=== PATIENT | female | born 1965 | race Caucasian/White ===

== ENCOUNTER 2020-07-07 09:09 | Outpatient (REF) | payer MEDICARE, MEDICAID, SELFPAY ==
[2020-07-07 10:47] LABS: Alanine Aminotransferase 14 U/L (0-31); Albumin Level 4.1 g/dL (3.5-5.0); Alkaline Phosphatase 67 U/L (39-117); Anion Gap 15 (12-20); Aspartate Amino Transferase 16 U/L (5-31); Bilirubin Direct 0.2 mg/dL (0.0-0.5); Bilirubin Total 0.4 mg/dL (0.0-1.0); Blood Urea Nitrogen 15 mg/dL (9-16); Calcium 9.7 mg/dL (8.4-10.2); Carbon Dioxide 30 mmol/L (22-29); Chloride 101 mmol/L (96-108); Estimated Glomerular Filt Rate 41; Glucose Random 206 mg/dL (60-115); Potassium 3.8 mmol/l (3.3-5.1); Sodium 142 mmol/L (135-145); Total Protein 6.5 g/dL (6.5-8.0)
[2020-07-07 10:59] LABS: Glucose Urine UA NEG (NEG); Leukocyte Esterase Urine TRACE (NEG); Nitrite Urine NEG (NEG); PH 5.5 (5.0-8.0); Specific Gravity - Urine >= 1.030 (1.005-1.025); Urine Blood TRACE (NEG); Urine Ketones 5 MG/DL (NEG); Urine Protein 2+ MG/DL (NEG-TRACE)
[2020-07-07 11:02] LABS: Appearance Urine CLOUDY; Color Urine YELLOW
[2020-07-07 11:34] LABS: WBC Urine 50-75 /HPF (0-4)
[2020-07-07 11:35] LABS: Bacteria Urine 4+ /LPF; Squamous Epithelial Cell Urine 2+ /LPF
[2020-07-08 07:53] LABS: HBc Num1 0.05 S/CO (0.00-0.79); Hepatitis B Core Antibody Nonreactive (Nonreactive); Hepatitis B Surface Antigen Negative (Negative)
[2020-07-08 08:08] LABS: HBS Num1 0.65 mIU/mL (0-7.99); ~HepC Num1 13.24 S/CO (0.00-0.79); ~Hepatitis B Surface Antibody NONREACTIVE (Nonreactive); ~Hepatitis C Antibody Reactive (Nonreactive)
== END 2020-07-07 09:10 | disposition home or self-care (01) ==
LOC: HO.LAB 09:09
PROVIDERS: PCP Physician Assistant; Visit Provider Physician Assistant
DX: R10.11 Right upper quadrant pain (principal); Z11.3 Encounter for screening for infections with a predominantly sexual mode of transmission; E11.9 Type 2 diabetes mellitus without complications; R30.0 Dysuria; Z87.19 Personal history of other diseases of the digestive system
CPT/HCPCS: 80048; 80076; 81001; 81003; 86704; 86706; 86803; 87086; 87088; 87186; 87340

== ENCOUNTER → 2020-07-15 08:30 | Outpatient (BNVA) | payer MEDICARE, MEDICAID, SELFPAY | PROVIDERS: PCP Physician Assistant; Visit Provider Physician Assistant | DX: K58.0 Irritable bowel syndrome with diarrhea (principal); R11.0 Nausea | CPT/HCPCS: Q3014 ==

== ENCOUNTER 2020-09-07 09:04 | Day surgery (SDC) | payer MEDICARE, MEDICAID, SELFPAY ==
[2020-09-01 12:24] VITALS: BMI 65.6
--- NOTE | 2020-09-01 14:42 | HO.ANESPROP2 ---
Documented by User: Meseret Canales 09/01/20 14:47 HPI - Anesthesia Eval Consult details Narrative: 55yo F for Upper Endoscopy and Colonoscopy Cardiac cleared [facility] Past Medical History Medical History Anxiety and depression CAD (coronary artery disease) CHF (congestive heart failure) Elevated cholesterol GERD (gastroesophageal reflux disease) History of weakness HTN (hypertension) Nausea Family History Family History Father Multiple sclerosis Mother Hypertension Diabetes Maternal Aunt Colon cancer Cervical cancer Surgical History Surgical History History of arthroscopy of left shoulder History of bunionectomy History of carpal tunnel release History of endometrial ablation History of esophagogastroduodenoscopy (EGD) History of laparoscopic cholecystectomy History of lumbar discectomy History of lumbar fusion History of vascular surgery Hx of colonoscopy S/P CABG x 3 S/P foot surgery, right Ulnar nerve entrapment Social History Social History Alcohol intake: never Smoking Status: Current every day smoker Tobacco Type: Cigarette Cigarettes Per Day: 4 Use of substances other than those prescribed or required for medical reasons: Yes Substance Use Type: Marijuana Substance Use Frequency: Weekly Advance Directives: No Advance Directives Information Provided: No Advance Directives on File: No Narrative Narrative: Per cardiac clearance note, pt walks 60 mins daily without cardiac symptoms Meds Allergies Allergy/AdvReac Type Severity Reaction Status Date / Time ibuprofen [Ibuprofen] Allergy Severe ACUTE Verified 09/01/20 12:09 RENAL FAILURE (YRS AGO), shut kidneys down, kidneys shut down Home Medications Medication Instructions Recorded Confirmed Type cholestyramine (with sugar) 4 gram 1 ea PO QID PRN 07/07/20 09/01/20 History powder for susp in a packet insulin glargine 100 unit/mL (3 18 unit SUBCUT BEDTIME ml 07/07/20 09/01/20 History mL) subcutaneous pen liraglutide 0.6 mg/0.1 mL (18 mg/3 0.6 mg SUBCUT DAILY 07/07/20 09/01/20 History mL) subcutaneous pen injector metoprolol tartrate 25 mg tablet 25 mg PO BID tab 07/07/20 09/01/20 History pantoprazole 40 mg tablet,delayed 40 mg PO DAILY 07/07/20 09/01/20 History release pen needle, diabetic 31 gauge x #50 ea 07/07/20 07/07/20 History 3/16 potassium chloride 10 mEq 10 meq PO DAILY 07/07/20 09/01/20 History tablet,extended release insulin aspart U-100 [Novolog 3 - 13 unit SUBCUT TIDAC 09/01/20 09/01/20 History Flexpen U-100 Insulin] ondansetron HCl 8 mg PO TID PRN 09/01/20 09/01/20 History Exam Exam Date and Time: September 01, 2020 1442 Height,Weight and Vital Signs: Height 5 ft 3 in Weight 168 kg Pertinent Lab Results Pertinent Lab Results: Laboratory Tests 04/23/20 07/07/20 13:55 09:35 WBC 9.8 Hgb 15.0 Hct 45.8 Plt Count 193 Sodium 142 Potassium 3.8 Chloride 101 Carbon Dioxide 30 H BUN 15 Creatinine 1.35 Narrative Narrative: Echo 2016 LV size is normal, Mild conc LVH, LV sys function nml, LVEF 55-60%, No def R WMA Abn septal motion c/w prior cardiac surgery. Aortic valve probably bicuspid with raphe. No signif . Trace AR. Trace MR RV size and function appear grossly nml. Mod TR PA sys pressure 25-30mmHg Assessment and Plan Assessment Anesthesia Assessment: Chart Reviewed Documented by User: Tray Paige 09/07/20 09:21 [facility] Past Medical History Medical History Anxiety and depression CAD (coronary artery disease) CHF (congestive heart failure) Elevated cholesterol GERD (gastroesophageal reflux disease) History of weakness HTN (hypertension) Nausea Family History Family History Father Multiple sclerosis Mother Hypertension Diabetes Maternal Aunt Colon cancer Cervical cancer Surgical History Surgical History History of arthroscopy of left shoulder History of bunionectomy History of carpal tunnel release History of endometrial ablation History of esophagogastroduodenoscopy (EGD) History of laparoscopic cholecystectomy History of lumbar discectomy History of lumbar fusion History of vascular surgery Hx of colonoscopy S/P CABG x 3 S/P foot surgery, right Ulnar nerve entrapment Social History Social History Alcohol intake: never Smoking Status: Current every day smoker Tobacco Type: Cigarette Cigarettes Per Day: 4 Use of substances other than those prescribed or required for medical reasons: Yes Substance Use Type: Marijuana Substance Use Frequency: Weekly Advance Directives: No Advance Directives Information Provided: No Advance Directives on File: No Meds Allergies Allergy/AdvReac Type Severity Reaction Status Date / Time ibuprofen [Ibuprofen] Allergy Severe ACUTE Verified 09/01/20 12:09 RENAL FAILURE (YRS AGO), shut kidneys down, kidneys shut down Home Medications Medication Instructions Recorded Confirmed Type cholestyramine (with sugar) 4 gram 1 ea PO QID PRN 07/07/20 09/01/20 History powder for susp in a packet insulin glargine 100 unit/mL (3 18 unit SUBCUT BEDTIME ml 07/07/20 09/01/20 History mL) subcutaneous pen liraglutide 0.6 mg/0.1 mL (18 mg/3 0.6 mg SUBCUT DAILY 07/07/20 09/01/20 History mL) subcutaneous pen injector metoprolol tartrate 25 mg tablet 25 mg PO BID tab 07/07/20 09/01/20 History pantoprazole 40 mg tablet,delayed 40 mg PO DAILY 07/07/20 09/01/20 History release pen needle, diabetic 31 gauge x #50 ea 07/07/20 07/07/20 History 3/16 potassium chloride 10 mEq 10 meq PO DAILY 07/07/20 09/01/20 History tablet,extended release insulin aspart U-100 [Novolog 3 - 13 unit SUBCUT TIDAC 09/01/20 09/01/20 History Flexpen U-100 Insulin] ondansetron HCl 8 mg PO TID PRN 09/01/20 09/01/20 History Exam Airway Mallampati Class: II TM Dist: >3cm Neck ROM: Full Denture: Upper and Lower
[2020-09-07 09:30] LABS: Glucose, Whole Blood 154 mg/dL (60-115)
--- NOTE | 2020-09-07 09:33 | MHC.SHP ---
Pre-Procedural Eval Section B Chief Complaint: nausea,irritable bowel syndrome with diarrhea Details of Present Illness: sx improved with course of cipro but not fully resolved, also better with stopping high dose Vit D Relevant Social History: Tobacco Use (THC as well) Present Medications: see Short Stay Collaborative assessment Medical History: Significant History (Anxiety and depression CAD (coronary artery disease) CHF (congestive heart failure) Elevated cholesterol GERD (gastroesophageal reflux disease) History of weakness HTN (hypertension) Nausea) History of Previous Operations: Relevant previous surgery/procedure and date(s) (History of arthroscopy of left shoulder History of bunionectomy History of carpal tunnel release History of endometrial ablation History of esophagogastroduodenoscopy (EGD) History of laparoscopic cholecystectomy History of lumbar discectomy History of lumbar fusion History of vascular surgery Hx of) Allergies: Allergies Allergy/AdvReac Type Severity Reaction Status Date / Time ibuprofen [Ibuprofen] Allergy Severe ACUTE Verified 09/01/20 12:09 RENAL FAILURE (YRS AGO), shut kidneys down, kidneys shut down Review of Systems Sugical H&P ROS: Negative: Constitution, Cardiovascular, Respiratory, Neurological, Psychiatric, Hem-Onc, Allergic/Immunologic, Gastrointestinal, Genitourinary, Musculoskeletal, Integumentary, Endocrine and Eyes/Ears/Nose/Throat Exam Surgical H&P Exam: Normal: HEENT, Normal: Heart, Normal: Lungs, Normal: Extremities, Normal: Abdomen, Normal: Skin and Normal: Neurological Plan Diagnosis/Plan: Unchanged I have reviewed the history and physical and performed a pertinent physical examination on my patient. No changes have occurred unless specified.
--- NOTE | 2020-09-07 09:35 | P.OP_ITS ---
Operative Note Operative Note Date of Service: 09/07/20 Narrative: Operative Information Procedure Description: EGD, Colonoscopy FLEXIBLE TRANSORAL UPPER GASTROINTESTINAL ENDOSCOPY AND COLONOSCOPY PROCEDURE NOTE UPPER ENDOSCOPY Consent: Indications for the procedure and potential complications of bleeding, perforation, reaction to medications and missed diagnosis were discussed with the patient and informed consent was obtained. Instrument: Olympus GIF H 190 J mid size upper endoscope Monitoring: Vital signs and clinical assessment, continuous EKG monitoring, Pulse oximetry, Carbon Dioxide monitoring and blood pressure monitoring were done throughout the procedure. Procedure: The patient was placed in the left lateral decubitis position and pre-procedure medications were administered and a bite block was placed. The endoscope was inserted into the mouth and advanced under direct vision to the third part of duodenum. A careful inspection was made as the upper endoscope was withdrawn including a retroflexed examination of the proximal stomach; Findings and interventions are described below. Findings: Larynx:normal Esophagus: GE junction at 37 cm, diaphragm hiatus at 37 cm, normal mucosa Stomach: Patchy erythema. Biopsies were obtained. Grade 2 flap valve on retroflexed examination of the cardia. Duodenum: bulbar duodenitis, bx taken Intervention: Biopsies as noted above COLONOSCOPY Instrument: Olympus variable stiffness pediatric scope 190L Colonoscopy Monitoring: Vital signs and clinical assessment, continuous EKG monitoring, Pulse oximetry, Carbon Dioxide monitoring and blood pressure monitoring were done throughout the procedure. Colon withdrawal time was 22 minutes. Procedure: The patient was placed in the left lateral decubitis position and pre-procedure medications were administered. After a digital rectal examination of the ano-rectum, the video colonoscope was inserted into the rectum and advanced through the colon to the cecum/TI. The colonoscope was slowly withdrawn in a retrograde panoramic fashion and the colon mucosa was carefully examined including a retroflexed view of the rectum. Findings and interventions are described below. Procedure Difficulty:easy Findings: random colon bx taken Terminal Ileum-normal, bx taken Cecum:3-4 mm sessile polyp removed with forceps, otherwise normal Ascending Colon: 12 mm sessile polyp removed with cold snare, residual tissue removed with forceps Transverse Colon -6-7 mm sessile polyp removed with forceps Descending Colon: 5-7 mm sessile polyp removed with forceps Sigmoid Colon: normal Rectum: Retroflexion with small internal hemorrhoids, grade I Anorectum - normal Colon preparation: [place] Bowel Preparation Scale Right colon; 1 Transverse colon: 2 Left colon; 3 (0 = Unprepared colon segment with mucosa not seen due to solid stool that cannot be cleared. 1 = Portion of mucosa of the colon segment seen, but other areas of the colon segment not well seen due to staining, residual stool and/or opaque liquid. 2 = Minor amount of residual staining, small fragments of stool and/or opaque liquid, but mucosa of colon segment seen well. 3 = Entire mucosa of colon segment seen well with no residual staining, small fragments of stool or opaque liquid) Impression and Post Procedure Diagnosis: Endoscopy Findings: gastritis duodenitis Colonoscopy Findings: internal hemorrhoids polyps Plan: Await Pathology results Repeat Colonoscopy in 2-3 years due to prep or earlier if clinically indicated High fiber diet leaflet avoid straining at stool, epsom salts and sitz bath, anusol supps or cream prn consider GES in ongoing sx Above findings were reviewed with the patient and relevant handouts were provided if indicated.
--- NOTE | 2020-09-07 09:35 | PM.OP ---
Brief Operative Note Date of Service: 09/07/20 Pre-op diagnosis: diarrhea Post-op diagnosis: same Procedure: see op note Surgeon: Erica Hatfield MD Anesthesia: MAC Estimated blood loss (mL): 0 Condition: stable Disposition: PACU
[2020-09-07 09:37] VITALS: BMI 29.7
[2020-09-07 09:43] VITALS: BP 148/77; PULSE 92; RESP 18; TEMP 36.3; O2SAT 98
[2020-09-07] MEDS: Lactated Ringers 1,000 ML 100 ML IVCONT (09:46)
[2020-09-07 10:45] VITALS: BP 139/75; PULSE 75; RESP 14; TEMP 37.2; O2SAT 97
[2020-09-07 11:00] VITALS: BP 124/76; PULSE 77; RESP 17; TEMP 36.7; O2SAT 97
--- NOTE | 2020-09-07 11:23 | HO.POSTANES ---
Post Anesthesia Evaluation Post Anesthesia Evaluation Vital Signs: Vital Signs Temp Pulse Resp BP Pulse Ox 09/07/20 11:00 98.0 F 77 17 124/76 97 09/07/20 10:45 98.9 F 75 14 139/75 97 09/07/20 09:43 97.3 F 92 18 148/77 H 98 Anesthesia: Monitored Mental Status: Awake Pain Control: Satisfactory Nausea/Vomiting: None Hydration: Adequate Anesthesia-Related Issues: No Anes. Related Issues
== END 2020-09-07 11:30 | disposition home or self-care (01) ==
PROVIDERS: PCP Physician Assistant; Visit Provider Internal Medicine Gastroenterology
PROC: (CPT 45385; principal; 2020-09-07 10:20)
DX: K58.0 Irritable bowel syndrome with diarrhea (principal); D12.3 Benign neoplasm of transverse colon; D12.4 Benign neoplasm of descending colon; K63.5 Polyp of colon; K64.0 First degree hemorrhoids; K29.70 Gastritis, unspecified, without bleeding; K29.80 Duodenitis without bleeding; K44.9 Diaphragmatic hernia without obstruction or gangrene; Z90.49 Acquired absence of other specified parts of digestive tract; I11.0 Hypertensive heart disease with heart failure; I50.9 Heart failure, unspecified; I25.10 Atherosclerotic heart disease of native coronary artery without angina pectoris; F17.210 Nicotine dependence, cigarettes, uncomplicated; Z95.1 Presence of aortocoronary bypass graft; Z79.899 Other long term (current) drug therapy; Z88.8 Allergy status to other drugs, medicaments and biological substances
CPT/HCPCS: 45385; 45380; 43239; 82947; 88305; 88342; J2370

== ENCOUNTER → 2020-09-14 09:38 | Outpatient (BNVA) | payer MEDICARE, MEDICAID, SELFPAY | PROVIDERS: PCP Physician Assistant; Visit Provider Physician Assistant | DX: Z13.89 Encounter for screening for other disorder (principal) | CPT/HCPCS: Q3014 ==

== ENCOUNTER → 2020-10-06 11:20 | Outpatient (BNVA) | payer MEDICARE, MEDICAID, SELFPAY | PROVIDERS: PCP Physician Assistant; Visit Provider Internal Medicine Gastroenterology | CPT/HCPCS: Q3014 ==

== ENCOUNTER 2020-11-09 11:17 | Outpatient (REF) | payer MEDICARE, MEDICAID, SELFPAY ==
--- NOTE | ~2020-11-09 | MM_ITS ---
EXAMINATION: MM SCREENING DIGITAL BREAST TOMOSYNTHESIS, BILATERAL CLINICAL INFORMATION: Screening. Asymptomatic. The lifetime risk of breast cancer based on the Tyrer-Cuzick Model is 4.2%. COMPARISON: Mammography: September 26, 2019 and studies dating back to June 24, 2013 TECHNIQUE: Digital breast tomosynthesis is performed in both the craniocaudal and mediolateral oblique views along with computer-aided detection (CAD). Synthesized 2D images are generated from the tomosynthesis. FINDINGS: The breasts are almost entirely fatty (ACR BI-RADS breast composition Category a). There are no significant masses, abnormal calcifications, or other abnormalities. MM/MM tomosynthesis screening BI IMPRESSION: There are no significant changes from prior study. ASSESSMENT: BI-RADS 1: Negative RECOMMENDATION: Routine annual mammography screening. This patient's information was entered into a reminder system with a target due date for their next mammogram.
== END 2020-11-09 11:18 | disposition home or self-care (01) ==
LOC: HO.MAMMO 11:17
PROVIDERS: PCP Physician Assistant; Visit Provider Physician Assistant
DX: Z12.31 Encounter for screening mammogram for malignant neoplasm of breast (principal)
CPT/HCPCS: 77063; 77067

== ENCOUNTER → 2020-11-16 07:53 | Outpatient (REF) | payer MEDICARE, MEDICAID, SELFPAY ==
--- NOTE | ~2020-11-16 | NM_ITS ---
EXAMINATION: RADIONUCLIDE SOLID FOOD GASTRIC EMPTYING 4-HOUR STUDY CLINICAL INFORMATION: Nausea COMPARISON: The previous study dated 10/16/2018 is available for comparison. TECHNIQUE: A standard meal consisting of 4 oz of Egg Beaters brand equivalent tagged with 830 microcuries Tc-99m Sulfur Colloid, 8 oz water and 2 slices of toast with jelly was administered orally to the patient. Images were obtained using a dual head gamma camera in the anterior and posterior projections over of the stomach immediately post ingestion and at hourly intervals up to 4 hours post ingestion. The anterior and posterior counts at each time interval were averaged using the geometric mean and expressed as percentage of the immediate post ingestion counts. FINDINGS: There is good visualization of activity in the stomach immediately post ingestion. As the study progresses, there is good clearance of activity from the stomach and visualization of progressively increasing small bowel activity. By the end of the study, there is almost no retention noted in the stomach. Retention in the stomach at each time interval was: 1 hour 65% (normal 37%-90%) 2 hours 51% (normal 30%-60%) 3 hours 24% 4 hours 8% (normal 0%-10%) Compared to the prior study dated 10/16/2018, gastric emptying of solid food is slightly more rapid on the current study. Previously there was 16% retention at 4 hours, a mildly abnormal result. NM/NM gastric emptying study IMPRESSION: Normal 4-hour solid food gastric emptying study.
== END ==
LOC: HO.NUCMED 07:53
PROVIDERS: Visit Provider Physician Assistant
DX: R11.0 Nausea (principal)
CPT/HCPCS: 78264; A9541

== ENCOUNTER → 2020-12-29 09:53 | Outpatient (BNVA) | payer MEDICARE, MEDICAID, SELFPAY | PROVIDERS: PCP Physician Assistant; Visit Provider Internal Medicine Gastroenterology | CPT/HCPCS: 99212 ==

== ENCOUNTER 2021-02-11 16:43 | Outpatient (REF) | payer MEDICARE, MEDICAID, SELFPAY ==
[2021-02-11 18:24] LABS: Hemoglobin 16.7 g/dl (12.0-16.0); Mean Corpuscular HGB Conc 34.1 g/dl (31.0-35.0); Mean Corpuscular Hemoglobin 31.1 pg (27.0-33.0); Mean Corpuscular Volume 91.2 fL (80-98); Mean Platelet Volume 11.4 fL (9.4-12.3); Platelet Count 182 X10*3/uL (160-400); Red Blood Count 5.37 X10*6/uL (4.20-5.50); Red Cell Distribution Width 13.3 % (11.0-16.0)
[2021-02-11 18:33] LABS: Alanine Aminotransferase 13 U/L (0-31); Albumin Level 4.4 g/dL (3.5-5.0); Alkaline Phosphatase 69 U/L (39-117); Anion Gap 14 (12-20); Aspartate Amino Transferase 15 U/L (5-31); Bilirubin Total 0.7 mg/dL (0.0-1.0); Blood Urea Nitrogen 21 mg/dL (9-16); Carbon Dioxide 24 mmol/L (22-29); Chloride 109 mmol/L (96-108); Cholesterol 185 mg/dL; Estimated Glomerular Filt Rate 55; Glucose Fasting 116 mg/dL (60-99); HDL Cholesterol 45 mg/dL; LDL Cholesterol Calculated 105 mg/dl; Potassium 4.1 mmol/L (3.3-5.1); Sodium 143 mmol/L (135-145); Triglycerides 178 mg/dL
[2021-02-11 18:55] LABS: TSH reflex Free T4 0.74 uIU/mL (0.32-4.0)
== END 2021-02-11 16:44 | disposition home or self-care (01) ==
LOC: HO.LAB 16:43
PROVIDERS: PCP Physician Assistant; Visit Provider Physician Assistant
DX: I10 Essential (primary) hypertension (principal); E11.65 Type 2 diabetes mellitus with hyperglycemia
CPT/HCPCS: 36415; 80053; 80061; 84443; 85027

== ENCOUNTER 2021-04-14 11:45 | Outpatient (REF) | payer MEDICARE, MEDICAID, SELFPAY ==
--- NOTE | ~2021-04-14 | XR_ITS ---
EXAMINATION: XR CHEST CLINICAL INFORMATION: Atherosclerotic heart disease of the [place] coronary arteries COMPARISON: Previous chest x-ray most recent February 2018 TECHNIQUE: 2 views of the chest were obtained. FINDINGS: The cardiac and mediastinal contours are stable. There are post-CABG changes. The lungs are clear. There is no pleural effusion or pneumothorax. There are degenerative changes of the spine. There may be postoperative or posttraumatic changes to the right distal clavicle. XR/XR chest 2V IMPRESSION: No evidence for acute disease in the chest.
== END 2021-04-14 11:46 | disposition home or self-care (01) ==
LOC: HO.XRAY 11:45
PROVIDERS: PCP Physician Assistant; Visit Provider Physician Assistant
DX: I25.10 Atherosclerotic heart disease of native coronary artery without angina pectoris (principal)
CPT/HCPCS: 71046

== ENCOUNTER → 2021-05-10 11:18 | Outpatient (BNVA) | payer MEDICARE, MEDICAID, SELFPAY | PROVIDERS: PCP Physician Assistant; Referring Provider Physician Assistant; Visit Provider Internal Medicine Gastroenterology | DX: K58.9 Irritable bowel syndrome, unspecified (principal); R11.0 Nausea | CPT/HCPCS: 99212 ==

== ENCOUNTER → 2021-09-07 11:21 | Outpatient (BNVA) | payer MEDICARE, MEDICAID, SELFPAY | PROVIDERS: PCP Physician Assistant; Referring Provider Physician Assistant; Visit Provider Internal Medicine Gastroenterology | DX: K58.0 Irritable bowel syndrome with diarrhea (principal) | CPT/HCPCS: 99212 ==

== ENCOUNTER 2021-10-18 08:14 | Outpatient (REF) | payer MEDICARE, MEDICAID, SELFPAY ==
[2021-10-18 09:19] LABS: Hematocrit 46.5 % (37.0-47.0); Hemoglobin 15.3 g/dl (12.0-16.0); Mean Corpuscular HGB Conc 32.9 g/dl (31.0-35.0); Mean Corpuscular Hemoglobin 30.3 pg (27.0-33.0); Mean Corpuscular Volume 92.1 fL (80.0-98.0); Mean Platelet Volume 10.6 fL (9.4-12.3); Platelet Count 185 X10*3/uL (160-400); Red Blood Count 5.05 X10*6/uL (4.20-5.50); Red Cell Distribution Width 14.1 % (11.0-16.0); White Blood Count 8.9 X10*3/uL (4.8-10.8)
[2021-10-18 09:41] LABS: Alanine Aminotransferase 15 U/L (0-31); Albumin Level 3.7 g/dL (3.5-5.0); Alkaline Phosphatase 80 U/L (39-117); Anion Gap 12 (12-20); Aspartate Amino Transferase 16 U/L (5-31); Bilirubin Total 0.4 mg/dL (0.0-1.0); Blood Urea Nitrogen 17 mg/dL (9-16); Calcium 9.2 mg/dL (8.4-10.2); Carbon Dioxide 25 mmol/L (22-29); Chloride 107 mmol/L (96-108); Cholesterol 215 mg/dL; Estimated Glomerular Filt Rate > 60; Glucose Fasting 179 mg/dL (60-99); HDL Cholesterol 70 mg/dL; LDL Cholesterol Calculated 125 mg/dl; Potassium 4.4 mmol/L (3.3-5.1); Sodium 140 mmol/L (135-145); Total Protein 6.1 g/dL (6.5-8.0); Triglycerides 102 mg/dL
[2021-10-18 10:05] LABS: Vitamin D 25-OH Total 12.1 ng/mL (>30)
[2021-10-18 11:05] LABS: Folate 5.1 ng/mL (> or = 4.0); Vitamin B12 266 pg/mL (200-900)
== END 2021-10-18 08:15 | disposition home or self-care (01) ==
LOC: HO.LAB 08:14
PROVIDERS: PCP Physician Assistant; Visit Provider Physician Assistant
DX: I25.10 Atherosclerotic heart disease of native coronary artery without angina pectoris (principal); I10 Essential (primary) hypertension; E11.65 Type 2 diabetes mellitus with hyperglycemia
CPT/HCPCS: 36415; 80053; 80061; 82306; 82607; 82746; 85027

== ENCOUNTER → 2022-05-06 09:00 | Outpatient (BNVA) | payer MEDICARE, MEDICAID, SELFPAY | PROVIDERS: PCP Physician Assistant; Referring Provider Physician Assistant; Visit Provider Internal Medicine Gastroenterology | DX: K58.0 Irritable bowel syndrome with diarrhea (principal); R10.11 Right upper quadrant pain | CPT/HCPCS: 99212 ==

== ENCOUNTER 2022-05-09 07:01 | Outpatient (REF) | payer MEDICARE, MEDICAID, SELFPAY ==
--- NOTE | ~2022-05-09 | XR_ITS ---
EXAMINATION: XR KUB CLINICAL INDICATION: Reason for Exam K58.0 - Irritable bowel syndrome with diarrhea COMPARISON: CT abdomen pelvis 08/28/2018 TECHNIQUE: AP view of the abdomen. XR/XR KUB FINDINGS/IMPRESSION: * Nonobstructive bowel gas pattern with a moderate colonic stool burden. * Stable calcifications in the pelvis which on prior exam appear to correspond to calcified phleboliths and a calcified left gluteal granuloma. * Incidentally noted hardware at L5-S1 posterior spinal fusion with L5 laminectomy and cholecystectomy clips.
[2022-05-09 08:01] LABS: Alanine Aminotransferase 20 U/L (0-31); Albumin Level 4.2 g/dL (3.5-5.0); Alkaline Phosphatase 93 U/L (39-117); Anion Gap 16 (12-20); Aspartate Amino Transferase 15 U/L (5-31); Bilirubin Total 0.4 mg/dL (0.0-1.0); Blood Urea Nitrogen 23 mg/dL (9-16); Calcium 9.4 mg/dL (8.4-10.2); Carbon Dioxide 24 mmol/L (22-29); Chloride 104 mmol/L (96-108); Cholesterol 156 mg/dL; Estimated Glomerular Filt Rate 56; Glucose Fasting 286 mg/dL (60-99); HDL Cholesterol 49 mg/dL; LDL Cholesterol Calculated 78 mg/dl; Potassium 4.7 mmol/L (3.3-5.1); Sodium 139 mmol/L (135-145); Total Protein 6.6 g/dL (6.5-8.0); Triglycerides 146 mg/dL
[2022-05-09 08:09] LABS: Creatinine Urine 120.95 mg/dL
[2022-05-09 08:21] LABS: Microalbum/Creatinine Ratio Ur 1532.8 ug/mg cr; TSH reflex Free T4 3.03 uIU/mL (0.32-4.0)
== END 2022-05-09 07:02 | disposition home or self-care (01) ==
LOC: HO.LAB 07:01
PROVIDERS: Absent Provider Physician Assistant; PCP Physician Assistant; Visit Provider Internal Medicine Gastroenterology
DX: R10.11 Right upper quadrant pain (principal); K58.0 Irritable bowel syndrome with diarrhea; I25.10 Atherosclerotic heart disease of native coronary artery without angina pectoris; E11.65 Type 2 diabetes mellitus with hyperglycemia
CPT/HCPCS: 36415; 74018; 80053; 80061; 82043; 84443

== ENCOUNTER → 2023-01-17 14:49 | Outpatient (BNVA) | payer MEDICARE, MEDICAID, SELFPAY | PROVIDERS: PCP Physician Assistant; Visit Provider Nurse Practitioner Family | DX: G47.00 Insomnia, unspecified (principal); G47.19 Other hypersomnia; G47.26 Circadian rhythm sleep disorder, shift work type; R06.83 Snoring; E66.9 Obesity, unspecified; Z68.32 Body mass index [BMI] 32.0-32.9, adult | CPT/HCPCS: 99202 ==

== ENCOUNTER → 2023-01-27 19:38 | Outpatient (REF) | payer MEDICARE, MEDICAID, SELFPAY | LOC: HO.SL 19:38 | PROVIDERS: PCP Physician Assistant; Visit Provider Nurse Practitioner Family | DX: G47.00 Insomnia, unspecified (principal); G47.19 Other hypersomnia; R06.83 Snoring; E66.9 Obesity, unspecified | CPT/HCPCS: 95810 ==

== ENCOUNTER 2023-02-15 11:30 | Outpatient (RCR) | payer MEDICARE, MEDICAID, SELFPAY | END 2023-04-11 10:16 | disposition home or self-care (01) | LOC: HO.OT 11:30 | PROVIDERS: PCP Physician Assistant; Visit Provider Internal Medicine | DX: I69.351 Hemiplegia and hemiparesis following cerebral infarction affecting right dominant side (principal); I63.542 Cerebral infarction due to unspecified occlusion or stenosis of left cerebellar artery | CPT/HCPCS: 97110; 97112; 97140; 97165; 97530 ==

== ENCOUNTER 2023-03-02 08:26 | Outpatient (AMB) | payer MEDICARE, MEDICAID, SELFPAY ==
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
[2023-03-02 08:37] VITALS: BP 128/64; PULSE 88; O2SAT 95; BMI 32.6
== END 2023-03-02 09:37 | disposition home or self-care (01) ==
PROVIDERS: PCP Physician Assistant; Visit Provider Physician Assistant
DX: I11.0 Hypertensive heart disease with heart failure (principal); E11.65 Type 2 diabetes mellitus with hyperglycemia; I50.32 Chronic diastolic (congestive) heart failure; Z86.73 Personal history of transient ischemic attack (TIA), and cerebral infarction without residual deficits; I65.23 Occlusion and stenosis of bilateral carotid arteries; I25.10 Atherosclerotic heart disease of native coronary artery without angina pectoris
CPT/HCPCS: 83036; 99214

== ENCOUNTER 2023-04-19 08:35 | Outpatient (AMB) | payer MEDICARE, MEDICAID, SELFPAY ==
--- NOTE | 2023-04-19 08:43 | A.OFFVIS_ITS ---
Intake Vital Signs 04/19/23 08:47 Height 5 ft 3 in Weight 191 lb 4 oz BMI 33.9 BP 124/64 Blood Pressure Location Rt brachial Position Sitting Pulse 85 Pulse Source Pulse Oximeter Pulse Oximetry (%) 95 Oxygen Delivery Method Room Air Intake Visit Reasons: AWV Intake Note: Patient is here for an Annual Wellness Visit. 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: No Director Of Restaurants: Director Of Restaurants offered & declined Accompanied by: Self / Same As Patient Allergies ibuprofen [Ibuprofen] Allergy (Severe, Verified 04/19/23 09:15) ACUTE RENAL FAILURE (YRS AGO), shut kidneys down, kidneys shut down Medication List - Last Reconciled 04/19/23 by Christopher Stephenson PA-C aspirin (Adult Low Dose Aspirin) 81 mg PO DAILY atorvastatin 40 mg PO DAILY 90 days flash glucose sensor (FreeStyle [place] 2 Sensor kit) As directed insulin aspart U-100 (Novolog FlexPen U-100 Insulin aspart) 3 - 13 units (0.03 - 0.13 mL) subcut TIDAC 30 days insulin glargine (Lantus Solostar U-100 Insulin) 20 units (0.2 mL) subcut BEDTIME 30 days liraglutide 1.8 mg (0.3 mL) subcut DAILY 30 days loperamide 2 mg PO TID PRN 30 days metoprolol tartrate 25 mg PO BID ondansetron HCl 8 mg PO TID 15 days pantoprazole 40 mg PO DAILY pen needle, diabetic As directed quetiapine (Seroquel) 25 mg PO BEDTIME 30 days tramadol 50 mg PO Q8H PRN 14 days HPI AWV HPI Details Patient is a 57-year-old female here today for annual wellness visit. Today we discussed patient's surgical care and end of life planning. Given a MOLST form Vaccines: Up-to-date with COVID vaccine, pneumonia vaccine and tetanus vaccine considering shingles vaccine Colon cancer screening: utd Mammogram: Needs up-to-date mammogram HPI Comments History of Present Illness Details reviewed past medical history- yes reviewed surgical / hospitalization history- yes reviewed current medications- yes reviewed family history- yes home safety throw rugs? grab bars? raised toilet seat? working smoke detectors? activities of daily living difficulty bathing or showering? difficulty dressing? difficulty using the toilet? difficulty getting in and out of bed? difficulty walking? receives help from other person's with any of the above tasks? instrumental activities of daily living uses telephone - gets to place out of walking distance- go shopping for groceries- repairs own meals- does own minor home maintenance- does own laundry- does own housework- manages own money- currently takes medication- end of life planning discussed advanced directives- yes advanced directives on file? discussed wishes expressed in advanced directives. fall risk have you had any falls with injuries in the past year? have you had 2 or more falls in the past year? fall risk assessment: [facility] Medical History Anxiety and depression CAD (coronary artery disease) CHF (congestive heart failure) Chronic nausea Elevated cholesterol GERD (gastroesophageal reflux disease) History of weakness HTN (hypertension) Irritable bowel syndrome with diarrhea Nausea Surgical History History of arthroscopy of left shoulder History of bunionectomy History of carpal tunnel release History of endometrial ablation History of esophagogastroduodenoscopy (EGD) History of laparoscopic cholecystectomy History of lumbar discectomy History of lumbar fusion History of vascular surgery Hx of colonoscopy S/P CABG x 3 S/P foot surgery, right Ulnar nerve entrapment Family History Father Multiple sclerosis Mother Hypertension Diabetes Maternal Aunt Colon cancer Cervical cancer Other Mental problem Social History Household Members: Family Housing: House Alcohol intake: current Alcohol intake frequency: holidays/special occasions only Patient Tobacco Use Status: Former Tobacco user Quit Date: 10/30/22 Tobacco use type: Cigarette Cigarettes Per Day: 4 e-Cigarette/Vaping Use: Never Used Substance Use Type: Marijuana service: No Current occupational status: disabled Cognitive needs: No Hearing needs: No Vision needs: No Questionnaire Medicare Wellness Checkup What [age] your [age]?: 65-69 (57) What gender do you identify with?: female During the past 4 weeks, how much have you been bothered by emotional problems such as feeling anxious, depressed, irritable, sad or downhearted, and blue?: moderately During the past 4 weeks, has your physical & emotional health limited your social activities with family, friends, neighbors, or groups?: not at all During the past 4 weeks, how much bodily pain have you generally had?: moderate pain During the past 4 weeks, was someone available to help you if you needed & wanted help?: yes, a little During the past 4 weeks, what was the hardest physical activity you could do for at least 2 minutes?: moderate Can you get to places out of walking distance without help? (For eg., can you travel alone on buses, taxis or drive your car?): Yes Can you go shopping for groceries or clothes without someone's help?: Yes Can you prepare your own meals?: Yes Can you do your housework without help?: No Because of any health problems, do you need the help of another person with your personal care needs such as eating, bathing, dressing or getting around the house?: No Can you handle your own money without help?: Yes During the past 4 weeks, how would you rate your health in general?: poor During the past 4 weeks how have things been going for you?: good & bad parts about equal Are you having difficulties driving your car?: no Do you always fasten your seat belt when you are in a car?: yes, usually During past 4 weeks, have you been bothered by the following: never: Sexual problems? and Problems using the telephone?, seldom: Falling or dizzy when standing up and Teeth or denture problems? and often: Trouble eating well? and Tiredness or fatigue? Have you fallen 2 or more times in the past year?: Yes Are you afraid of falling?: No Are you a smoker?: no During the past 4 weeks, how many drinks of wine, beer, or other alcoholic beverages did you have?: no alcohol at all Do you exercise for about 20 minutes 3 or more times a week?: yes, most of the time Have you been given information to help with the following?: no: Hazards in your house that might hurt you? and no: Keeping track of your medications? How often do you have trouble taking medicines the way you have been told to take them?: I always take medicine as prescribed How confident are you that you can control & manage most of your health problems?: very confident Mini Mental State Exam (MMSE) Orientation What is the (year) (season) (date) (day) (month)?: season Where are we (state) (county) (town or city) (hospital) (floor)?: town or city Attention & Calculation (CHOOSE ONE) Spell WORLD backwards (DLROW): 5 letters Score Score: 7 Activity of Daily Living Bathing - sponge bath, tub bath or shower: receives no assistance (gets in/out by self, if usual bathing means Dressing - getting clothes from closets & drawers, including inner/outer garments & fasteners.: gets clothes & gets completely dressed without help Toileting - going to the 'toilet room' for urine/bowel elimination & cleaning self/arranging clothes: goes to toilet room, cleans self, arranges clothes without help Transfer: moves in & out of bed and chair without help (may use support object) Continence: controls urination/bowel movements completely by self Feeding: feeds self without help Total Score: 0 Information obtained from: patient Using telephone: independent Traveling: independent Shopping: independent Preparing meals: independent Housework: independent Taking medicine: independent Managing money: independent PHQ-9 Over the last 2 weeks, how often have you been bothered by any of the following problems? 1. Little interest or pleasure in doing things: more than half the days 2. Feeling down, depressed, or hopeless: more than half the days 3. Trouble falling or staying asleep, or sleeping too much: nearly every day 4. Feeling tired or having little energy: nearly every day 5. Poor appetite or overeating: more than half the days 6. Feeling bad about yourself - or that you are a failure or have let yourself or your family down: not at all 7. Trouble concentrating on things, such as reading the newspaper or watching television: not at all 8. Moving or speaking so slowly that other people could have noticed. Or the opposite - being so fidgety or restless that you have been moving around a lot more than usual: not at all 9. Thoughts that you would be better off or of hurting yourself in some way: not at all Total score: 12 Depression Screening Interpretation: Positive [id number] - PHQ-9 Billing: Yes Source: Developed by Drs. Pily Verduzco, Alex Garcia and colleagues, with an educational neymar from [employer]. Thrive Questionnaire Date Thrive assessed: 04/19/23 I am a: Patient What is your living situation today?: I have a steady place to live Within the past 12 months, did the food you bought not last and you didn't have the money to get more?: Never true Within the past 12 months, did you worry whether your food would run out before you got money to buy more?: Never true Do you have trouble paying for medicines?: No Do you have trouble getting transportation to medical appointments?: No Do you have trouble paying your heating and electricity bill?: No Do you have trouble taking care of your child, family member or friend?: No Do you have trouble with day-to-day activities such as bathing, preparing meals, shopping, managing finances, etc.?: No Are you currently unemployed and looking for a job?: No Are you interested in more education?: No Currently or been in a relationship where the following occur: no concerns reported CAROLYN-7 AMB Questionnaire CAROLYN-7 Date CAROLYN - 7 assessed: 11/29/22 Source: Developed by Drs. Gagandeep Feliz, Pily Lawson, Alex Garcia and colleagues, with an educational neymar from [employer]. Physical Exam Vital Signs: Last Vital Signs Pulse 85 04/19/23 08:47 BP 124/64 04/19/23 08:47 Pulse Ox 95 04/19/23 08:47 Oxygen Delivery Method Room Air 04/19/23 08:47 BMI result Body Mass Index 33.9 HEENT Other: hearing screening whisper test- pass Eyes Other: vision screening-using corrective lenses 20/20- OS OD OU Other: urinary incontinence? Neuro Other: balance Romberg- normal tandem walk test- able walk-in turned test- able rise from sit to stand- within 2 sec Assessment & Plan Assessment & Plan (1) Medicare annual wellness visit, initial: Code(s): Z00.00 - Encounter for general adult medical examination without abnormal findings (2) Cervical cancer screening: Code(s): Z12.4 - Encounter for screening for malignant neoplasm of cervix Plan: Needs cervical cancer screening. (3) Breast cancer screening: Code(s): Z12.39 - Encounter for other screening for malignant neoplasm of breast Qualifiers: Breast cancer screening modality: mammogram Qualified Code(s): Z12.31 - Encounter for screening mammogram for malignant neoplasm of breast Plan: Needs up-to-date Orders: Orders Lipid Panel 04/19/23 I25.10 - Atherosclerotic heart disease of [place] coronary artery without angina pectoris Complete Blood Count no Diff 04/19/23 I25.10 - Atherosclerotic heart disease of [place] coronary artery without angina pectoris NT-proBNP 04/19/23 I50.32 - Chronic diastolic (congestive) heart failure Comprehensive [place]. Panel Fast 04/19/23 I25.10 - Atherosclerotic heart disease of [place] coronary artery without angina pectoris Microalbumin, Random (w Creat) 04/19/23 I10 - Essential (primary) hypertension MM screening mammo BI Today Z12.31 - Encounter for screening mammogram for malignant neoplasm of breast Quality Reporting (2019) Depression/Bipolar (159/160/161/177) PHQ-9: Total score: 12 Coding Level of Care Code Medicare First (G0438) Diagnoses Medicare annual wellness visit, initial Z00.00 Cervical cancer screening Z12.4 Encounter for screening mammogram for malignant neoplasm of breast Z12.31 Breast cancer screening modality: mammogram CPT Codes Advance Care Planning - Time spent: 1-15 minutes, on File ([id number]) Advance Care Planning Advance Care Planning discussion: Completed/Scanned Date of discussion: 04/19/23 Forms completed: MOLST Time spent: 1-15 minutes, on File
[2023-04-19 08:47] VITALS: BP 124/64; PULSE 85; O2SAT 95; BMI 33.9
== END 2023-04-19 09:43 | disposition home or self-care (01) ==
PROVIDERS: PCP Physician Assistant; Visit Provider Physician Assistant
DX: Z00.00 Encounter for general adult medical examination without abnormal findings (principal); Z12.31 Encounter for screening mammogram for malignant neoplasm of breast
CPT/HCPCS: 1123F; G0438; G0439

== ENCOUNTER 2023-05-19 11:21 | Outpatient (REF) | payer MEDICARE, MEDICAID, SELFPAY ==
--- NOTE | ~2023-05-19 | MM_ITS ---
EXAMINATION: MM SCREENING DIGITAL BREAST TOMOSYNTHESIS, BILATERAL CLINICAL INFORMATION: Screening. Asymptomatic. COMPARISON: Mammography: This study is compared with prior exams dating back to 2016. TECHNIQUE: Digital breast tomosynthesis is performed in both the craniocaudal and mediolateral oblique views along with computer-aided detection (CAD). Synthesized 2D images are generated from the tomosynthesis. FINDINGS: The breasts are almost entirely fatty (ACR BI-RADS breast composition Category a). There are no significant masses, abnormal calcifications, or other abnormalities. MM/MM tomosynthesis screening BI IMPRESSION: No mammographic evidence of malignancy. ASSESSMENT: BI-RADS BI-RADS 1 - Negative RECOMMENDATION: Routine annual mammography screening. 1 year F/U This examination should not preclude the clinical evaluation of a suspicious palpable abnormality. This patient's information was entered into a reminder system with a target due date for their next mammogram.
== END 2023-05-19 11:22 | disposition home or self-care (01) ==
LOC: HO.MAMMO 11:21
PROVIDERS: PCP Physician Assistant; Visit Provider Physician Assistant
DX: Z12.31 Encounter for screening mammogram for malignant neoplasm of breast (principal)
CPT/HCPCS: 77063; 77067

== ENCOUNTER → 2023-05-19 11:30 | Outpatient (BNV) | payer MEDICARE, MEDICAID, SELFPAY | PROVIDERS: PCP Physician Assistant; Visit Provider Radiology Diagnostic Radiology | DX: Z12.31 Encounter for screening mammogram for malignant neoplasm of breast (principal) | CPT/HCPCS: 77063; 77067 ==

== ENCOUNTER 2023-11-27 09:05 | Outpatient (AMB) | payer MEDICARE, MEDICAID, SELFPAY ==
--- NOTE | 2023-11-27 09:14 | A.OFFPC_ITS ---
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 Required: No Accompanied by: Self / Same As Patient Allergies ibuprofen [Ibuprofen] Allergy (Severe, Verified 11/27/23 09:40) ACUTE RENAL FAILURE (YRS AGO), shut kidneys down, kidneys shut down Medication List - Last Reconciled 11/27/23 by Christopher Stephenson PA-C aspirin (Adult Low Dose Aspirin) 81 mg PO DAILY atorvastatin 40 mg PO DAILY 90 days ezetimibe 10 mg PO DAILY flash glucose sensor (Downstream [place] 2 Sensor kit) As directed insulin aspart U-100 (Novolog FlexPen U-100 Insulin aspart) 3 - 13 units (0.03 - 0.13 mL) subcut TIDAC 30 days insulin glargine (Lantus Solostar U-100 Insulin) 20 units (0.2 mL) subcut BEDTIME 30 days liraglutide 1.8 mg (0.3 mL) subcut DAILY 30 days loperamide 2 mg PO TID PRN 30 days metoprolol tartrate 25 mg PO BID ondansetron HCl 8 mg PO TID 15 days pantoprazole 40 mg PO DAILY pen needle, diabetic As directed quetiapine (Seroquel) 25 mg PO BEDTIME 30 days tramadol 50 mg PO Q8H PRN 14 days Tobacco use date assessed: 11/27/23 Dental Screening Dental Screen Date: 11/27/23 Did you have a dental visit in the last 12 months?: No Did you have a dental problem in the last 6 months where you did not have access to dental care?: No Was dental information given to patient?: Patient has dentist HPI 3 months F/U R/S from 11/19 HPI Details Patient is a 58-year-old female here today for follow-up visit. 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 .. CVA(October of 2022)- has followed up with Neurology, has been referred to vascular as she does have intracranial arterial stenosis. Has done occupational therapy . She has been left with right-sided upper extremity neuromuscular weakness. Also does have bilateral carotid stenosis and has been followed by vascular for this. She reports she has generally quit smoking though does have a cigarette here and there due to stress. ? .. ? DMII : . Was followed by [facility] though is not satisfied with the service.. She reports her blood sugars have been elevated as of late and has been having difficult time controlling them. Today's A1c at 10 from 7.5. Has microalbuminuria and has seen Nephrology, Bun/creatinine has been stable. Unfortunately was not able to get fasting labs done before today's appointment. She also does neuropathy in her lower extremities.? PLAN: Will tight in her short-acting preprandial insulin, increase her Lantus to 28 units. Will transition her to Trulicity once a week for added benefit of weight loss. ? .. ? Depression:? She reports her depression and anxiety have been elevated as of late as she has been having issues with her mother whom lives with her and her home.? She does report they argue a lot and sometimes the arguments become physical. ? . ? Insomnia: Patient reports she is having issues with sleep, she reports she has been taking Seroquel 25 mg at night with only decent affect. She does take 50 mg at night with good effect. She is interested in increasing her dose of Seroquel to 50 mg ? .. ? CAD ( CABG) & CHF - recently saw her cardiologis no new recommendations has follow-up in 1 year. ?Deneis any CP , lower extemity edema [facility] Medical History Nausea GERD (gastroesophageal reflux disease) Anxiety and depression History of weakness Elevated cholesterol HTN (hypertension) CAD (coronary artery disease) CHF (congestive heart failure) Irritable bowel syndrome with diarrhea Chronic nausea Surgical History History of esophagogastroduodenoscopy (EGD) Hx of colonoscopy History of vascular surgery S/P foot surgery, right S/P CABG x 3 Ulnar nerve entrapment History of lumbar fusion History of arthroscopy of left shoulder History of bunionectomy History of endometrial ablation History of carpal tunnel release History of laparoscopic cholecystectomy History of lumbar discectomy Family History Father Multiple sclerosis Mother Hypertension Diabetes Maternal Aunt Colon cancer Cervical cancer Other Mental problem Social History Household Members: Family Housing: House Alcohol intake: current Alcohol intake frequency: holidays/special occasions only Patient Tobacco Use Status: Former Tobacco user Quit Date: 10/30/22 Tobacco use type: Cigarette Cigarettes Per Day: 4 e-Cigarette/Vaping Use: Never Used Substance Use Type: Marijuana service: No Current occupational status: disabled Cognitive needs: No Hearing needs: No Vision needs: No Questionnaire PHQ-9 Over the last 2 weeks, how often have you been bothered by any of the following problems? 1. Little interest or pleasure in doing things: not at all 2. Feeling down, depressed, or hopeless: not at all 3. Trouble falling or staying asleep, or sleeping too much: not at all 4. Feeling tired or having little energy: not at all 5. Poor appetite or overeating: not at all 6. Feeling bad about yourself - or that you are a failure or have let yourself or your family down: not at all 7. Trouble concentrating on things, such as reading the newspaper or watching television: not at all 8. Moving or speaking so slowly that other people could have noticed. Or the opposite - being so fidgety or restless that you have been moving around a lot more than usual: not at all 9. Thoughts that you would be better off or of hurting yourself in some way: not at all Total score: 0 Depression Screening Interpretation: Negative Depression Screening Done: Yes 43856 - PHQ-9 Billing: Yes Source: Developed by Drs. Gagandeep Feliz, Pily Lawson, Alex Garcia and colleagues, with an educational neymar from [employer]. Thrive Questionnaire Date Thrive assessed: 11/27/23 I am a: Patient What is your living situation today?: I have a steady place to live Within the past 12 months, did the food you bought not last and you didn't have the money to get more?: Never true Within the past 12 months, did you worry whether your food would run out before you got money to buy more?: Never true Do you have trouble paying for medicines?: No Do you have trouble getting transportation to medical appointments?: No Do you have trouble paying your heating and electricity bill?: No Do you have trouble taking care of your child, family member or friend?: No Do you have trouble with day-to-day activities such as bathing, preparing meals, shopping, managing finances, etc.?: No Are you currently unemployed and looking for a job?: No Are you interested in more education?: No Please select the resources that you would like help with: None Currently or been in a relationship where the following occur: no concerns reported THRIVE Score: 0 AUDIT C Alcohol Use Questionnaire (AUDIT-C) 1. How often do you have a drink containing alcohol?: Never 3. How often do you have six or more drinks on one occasion?: Never Total Score: 0 CAROLYN-7 AMB Questionnaire CAROLYN-7 Date CAROLYN - 7 assessed: 11/27/23 Feeling nervous, anxious, or on edge: 0 = Not at all Not being able to stop or control worryin = Not at all Worrying too much about different things: 0 = Not at all Trouble relaxin = Not at all Being so restless that it is hard to sit still: 0 = Not at all Becoming easily annoyed or irritable: 0 = Not at all Feeling afraid as if something awful might happen: 0 = Not at all Total CAROLYN-7 score (0-4 normal; 5-9 mild; 10-14 moderate; 15-21 severe): 0 Source: Developed by Drs. Gagandeep Feliz, Pily Lawson, Alex Garcia and colleagues, with an educational neymar from [employer]. CAROLYN-7 Assessment Billing CAROLYN-7 Assessment Tool: CAROLYN-7 Assessment 47380 Review of Systems Const Denies headache(s) Eyes Denies loss of vision ENT Denies vertigo, Denies dizziness, Denies headache(s) and Denies sore throat Card Denies chest pain, Denies leg edema and Denies lightheadedness Resp Denies cough, Denies hemoptysis and Denies wheezing GI Denies abdominal pain, Denies melena, Denies constipation, Denies diarrhea and Denies vomiting Denies urinary frequency, Denies dysuria and Denies urinary urgency Musc Denies arthralgias, Denies joint swelling, Denies numbness and Denies tingling Neuro Denies Abnormal speech present, Denies behavioral changes, Denies vertigo, Denies dizziness, Denies headache(s), Denies loss of vision, Denies memory loss, Denies numbness and Denies tingling Psych Denies anxiety, Denies behavioral changes, Denies depression, Denies memory loss and Denies panic attacks Panda/Lymph Denies easy bleeding and Denies easy bruising Aller/Immun Denies wheezing Physical exam (Primary Care) Vital Signs: Last Vital Signs Pulse 88 11/27/23 09:15 BP 130/72 11/27/23 09:15 Pulse Ox 95 11/27/23 09:15 BMI result Body Mass Index 32.4 Tobacco/Smoking Status: Tobacco use Status Tobacco use date assessed 11/27/23 11/27/23 09:22 Patient Tobacco Use Status Former Tobacco user 11/27/23 09:22 Tobacco use type Cigarette 11/27/23 09:22 e-Cigarette/Vaping Use Never Used 11/27/23 09:22 PHQ-9: PHQ-9 Score PHQ-9: Total score 0 11/27/23 09:45 Depression Screening Interpretation: Negative Thrive Assessment: Date of Thrive Assessment Date Thrive assessed 11/27/23 11/27/23 09:22 Currently or been in a relationship where the following occur: no concerns reported Const General: healthy appearing, no acute distress, alert and awake Nutritional Appearance: well nourished Orientation/consciousness: oriented to person, oriented to place and oriented to time HENMT Ears: TM's normal bilaterally General nose exam: Normal nasal mucous membranes and turbinates present Eyes Conjunctivae: conjunctivae normal Sclerae: sclerae normal Pupils: Equal, round and reactive pupils present Neck Neck: Yes no lymphadenopathy and Yes no JVD Thyroid: Thyroid normal Carotids: no bruits Resp Effort & Inspection: normal respiratory effort and not tachypneic Auscultation: no crackles, no rales, no rhonchi and no wheezes Cardio Rate: regular rate Rhythm: regular rhythm Heart sounds: no murmurs and normal S1 and S2 GI Palpation (GI): Soft to palpation, nontender, no hepatomegaly and no splenomegaly Auscultation: normal bowel sounds Skin General skin exam: no rashes or lesions noted and dry skin Neuro General: oriented to person, oriented to place and oriented to time Cranial nerves: Yes Equal, round and reactive pupils present Speech: No Abnormal speech present Gait exam (Neuro): Normal gait present Motor exam (neuro): no tremor noted Extrem Right upper extremity: full ROM Left upper extremity: full ROM Right lower extremity: full ROM; no edema Left lower extremity: full ROM; no edema Psych Mental Status: mental status grossly normal Speech and movement: Normal speech and movement present Affect: normal affect Attitude: cooperative Thought process: Normal thought process present Results AMB Hemoglobin A1c AMB Hemoglobin A1c 10.0 % Last Edit by AMRIK Wild on 11/27/23 09:43 Results Reviewed Results Reviewed: Laboratory Last Values Hgb A1c (Clinic) 10.0 % (4.0-6.0) H 11/27/23 09:33 Assessment and Plan Assessment & Plan (1) DMII (diabetes mellitus, type 2): Code(s): E11.9 - Type 2 diabetes mellitus without complications Qualifiers: Diabetes mellitus complication status: with hyperglycemia Diabetes mellitus usp insulin use: without intermission coordinator use Qualified Code(s): E11.65 - Type 2 diabetes mellitus with hyperglycemia Plan: Patient's type 2 diabetes not well controlled as of late, she does report having hyperglycemia on a daily basis. Today's A1c at 10 from 7.5. She was followed by endocrinology at [facility] though is not pleased with their service. Will increase her Lantus to 28 units, will tighten her preprandial short-acting insulin. Will transition her from Victoza to Trulicity once a week.. Will refer to endocrinology for recommendations in stabilization of her diabetes., Goal A1c is to be below 7.0 (2) Cerebral infarction, left hemisphere: Comment: [facility] [place] - left hemispheric infarct in watershed areas of left frontal, temporal and parietal territories. Code(s): I63.9 - Cerebral infarction, unspecified Plan: As per HPI patient experienced CVA in October of 2022. She reports she continues to have some right hand cramping and numbness. Has done full course of occupational therapy for her right hand. Continue on aspirin 81 mg daily. (3) Hyperlipidemia: Code(s): E78.5 - Hyperlipidemia, unspecified Qualifiers: Hyperlipidemia type: mixed hyperlipidemia Qualified Code(s): E78.2 - Mixed hyperlipidemia Plan: Patient continues on statin therapy. Goal LDL to remain below 70. (4) Carotid artery stenosis: Comment: 10/2022 ([facility]) CTA of the head and neck with a right stenosis at VR, right ICA stenosis of 70% and left ICA stenosis of 50%. Code(s): I65.29 - Occlusion and stenosis of unspecified carotid artery Qualifiers: Laterality: bilateral Qualified Code(s): I65.23 - Occlusion and stenosis of bilateral carotid arteries Plan: Followed by vascular [facility] most recent vascular testing stable. (5) CAD (coronary artery disease): Code(s): I25.10 - Atherosclerotic heart disease of [place] coronary artery without angina pectoris Qualifiers: Associated angina: without angina Coronary Disease-Associated Artery/Lesion type: [place] artery [place] vs. transplanted heart: [place] heart Qualified Code(s): I25.10 - Atherosclerotic heart disease of [place] coronary artery without angina pectoris Plan: Will continue to follow lipid panel to ensure LDL below 70. (6) CHF (congestive heart failure): Code(s): I50.9 - Heart failure, unspecified Qualifiers: Heart failure chronicity: chronic Heart failure type: diastolic Qualified Code(s): I50.32 - Chronic diastolic (congestive) heart failure Plan: Patient clinically euvolemic on physical exam today. Continues to follow cardiology. No recent Congestive heart failure exacerbations reported. (7) HTN (hypertension): Code(s): I10 - Essential (primary) hypertension Qualifiers: Hypertension type: primary hypertension Qualified Code(s): I10 - Essential (primary) hypertension Plan: Patient's blood pressure acceptable today in office. Will continue current dose of antihypertensive medication with goal blood pressure be below 140/90 (8) Bilateral hand pain: Code(s): M79.641 - Pain in right hand; M79.642 - Pain in left hand Plan: Will send for x-rays of bilateral hand see evaluate for any evidence of erosion consistent with inflammatory arthritis. Orders: Orders AMB Hemoglobin A1c Today E11.65 - Type 2 diabetes mellitus with hyperglycemia Lipid Panel Today E78.2 - Mixed hyperlipidemia Comprehensive [place]. Panel Fast Today I50.32 - Chronic diastolic (congestive) heart failure NINFA Reflex Titer and Pattern Today M54.5 - Low back pain XR hand LT 2V Today M79.641 - Pain in right hand, M79.642 - Pain in left hand XR hand RT 2V Today M79.641 - Pain in right hand, M79.642 - Pain in left hand Microalbumin, Random (w Creat) Today I10 - Essential (primary) hypertension Complete Blood Count no Diff Today E11.65 - Type 2 diabetes mellitus with hyperglycemia Rheumatoid Factor Today M54.5 - Low back pain Cyclic Citrullinated Peptide Today M54.5 - Low back pain Referrals Endocrinology Referral E11.65 - Type 2 diabetes mellitus with hyperglycemia Medications: New dulaglutide (Trulicity) 0.75 mg (0.5 mL) subcut QWEEK 2 mL 1RF 4 weeks E11.65 - Type 2 diabetes mellitus with hyperglycemia quetiapine (Seroquel) 50 mg PO BEDTIME 30 tabs 3RF 30 days G47.00 - Insomnia, unspecified Changed From insulin glargine (Lantus Solostar U-100 Insulin) 20 units (0.2 mL) subcut BEDTIME 30 days 15 mL 6RF E11.9 - Type 2 diabetes mellitus without complications To insulin glargine (Lantus Solostar U-100 Insulin) 28 units (0.28 mL) subcut BEDTIME 8.4 mL 6RF 30 days E11.9 - Type 2 diabetes mellitus without complications From insulin aspart U-100 (Novolog FlexPen U-100 Insulin aspart) 3 - 13 units (0.03 - 0.13 mL) subcut TIDAC 30 days 15 mL 3RF E11.9 - Type 2 diabetes mellitus without complications To insulin aspart U-100 (Novolog FlexPen U-100 Insulin aspart) Sliding scale 8 - 24 units (0.08 - 0.24 mL) subcut TIDAC 15 mL 3RF 30 days E11.9 - Type 2 diabetes mellitus without complications Refilled atorvastatin 40 mg PO DAILY 90 tabs 1RF 90 days I25.10 - Atherosclerotic heart disease of [place] coronary artery without angina pectoris loperamide 2 mg PO TID PRN 90 caps 2RF loose stool 30 days K58.0 - Irritable bowel syndrome with diarrhea ondansetron HCl 8 mg PO TID 45 tabs 2RF Nausea 15 days R11.0 - Nausea insulin aspart U-100 (Novolog FlexPen U-100 Insulin aspart) 3 - 13 units (0.03 - 0.13 mL) subcut TIDAC 30 days 15 mL 3RF E11.9 - Type 2 diabetes mellitus without complications insulin glargine (Lantus Solostar U-100 Insulin) 20 units (0.2 mL) subcut BEDTIME 30 days 15 mL 6RF E11.9 - Type 2 diabetes mellitus without compl ications tramadol 50 mg PO Q8H PRN 42 tabs 3RF pain 14 days M54.5 - Low back pain, M79.601 - Pain in right arm Patient Instructions: Goals: Controlled diabetes, A1c below 7.0, control risk factors to reduce risk of another heart attack or stroke. Barriers: Mental health, scheduling appointments, care she was receiving at [facility] Coding Level of Care Code Est Pt Level 4 (84322) Diagnoses Type 2 diabetes mellitus with hyperglycemia, without long-term current use of insulin E11.65 Diabetes mellitus complication status: with hyperglycemia Diabetes mellitus usp insulin use: without intermission coordinator use Cerebral infarction, left hemisphere I63.9 Mixed hyperlipidemia E78.2 Hyperlipidemia type: mixed hyperlipidemia Bilateral carotid artery stenosis I65.23 Laterality: bilateral Coronary artery disease involving [place] coronary artery of [place] heart without angina pectoris I25.10 Associated angina: without angina Coronary Disease-Associated Artery/Lesion type: [place] artery [place] vs. transplanted heart: [place] heart Chronic diastolic congestive heart failure I50.32 Heart failure chronicity: chronic Heart failure type: diastolic Primary hypertension I10 Hypertension type: primary hypertension Bilateral hand pain M79.641; M79.642 Additional Codes CAROLYN-7 Assessment Billing - CAROLYN-7 Assessment Tool: CAROLYN-7 Assessment [id number] ([id number])
[2023-11-27 09:15] VITALS: BP 130/72; PULSE 88; O2SAT 95; BMI 32.4
== END 2023-11-27 10:06 | disposition home or self-care (01) ==
PROVIDERS: PCP Physician Assistant; Visit Provider Physician Assistant
DX: E11.65 Type 2 diabetes mellitus with hyperglycemia (principal); I69.351 Hemiplegia and hemiparesis following cerebral infarction affecting right dominant side; I50.32 Chronic diastolic (congestive) heart failure; I65.23 Occlusion and stenosis of bilateral carotid arteries; E78.2 Mixed hyperlipidemia; I25.10 Atherosclerotic heart disease of native coronary artery without angina pectoris; I10 Essential (primary) hypertension; M79.641 Pain in right hand; M79.642 Pain in left hand
CPT/HCPCS: 83036; 99214

== ENCOUNTER 2024-01-25 12:48 | Outpatient (REF) | payer MEDICARE, SELFPAY ==
[2024-01-25 14:04] LABS: Hematocrit 45.3 % (37.0-47.0); Mean Corpuscular HGB Conc 33.1 g/dl (31.0-35.0); Mean Corpuscular Hemoglobin 29.9 pg (27.0-33.0); Mean Corpuscular Volume 90.4 fL (80.0-98.0); Mean Platelet Volume 11.1 fL (9.4-12.3); Platelet Count 202 X10*3/uL (160-400); Red Blood Count 5.01 X10*6/uL (4.20-5.50); Red Cell Distribution Width 13.7 % (11.0-16.0); White Blood Count 8.7 X10*3/uL (4.8-10.8)
[2024-01-25 14:23] LABS: Rheumatoid Factor < 13.0 IU/mL (<15.0)
[2024-01-25 14:33] LABS: Alanine Aminotransferase 28 U/L (0-31); Albumin Level 3.8 g/dL (3.5-5.0); Alkaline Phosphatase 66 U/L (39-117); Anion Gap 9 (12-20); Aspartate Amino Transferase 25 U/L (5-31); Bilirubin Total 0.5 mg/dL (0.0-1.0); Blood Urea Nitrogen 26 mg/dL (9-16); Calcium 9.4 mg/dL (8.4-10.2); Carbon Dioxide 29 mmol/L (22-29); Chloride 107 mmol/L (96-108); Cholesterol 129 mg/dL (<200); Estimated Glomerular Filt Rate 54; Glucose Fasting 183 mg/dL (60-99); HDL Cholesterol 45 mg/dL (>40); LDL Cholesterol Calculated 54 mg/dL (<100); Potassium 4.4 mmol/L (3.3-5.1); Sodium 141 mmol/L (135-145); Total Protein 6.6 g/dL (6.5-8.0); Triglycerides 150 mg/dL (<150)
[2024-01-29 11:13] LABS: Cyclic Citrullinated Peptide <16 UNITS
[2024-01-29 14:44] LABS: Anti Nuclear Antibody Screen NEGATIVE (NEGATIVE)
== END 2024-01-25 12:49 | disposition home or self-care (01) ==
LOC: HO.LAB 12:48
PROVIDERS: PCP Physician Assistant; Visit Provider Physician Assistant
DX: I11.0 Hypertensive heart disease with heart failure (principal); I50.32 Chronic diastolic (congestive) heart failure; E11.65 Type 2 diabetes mellitus with hyperglycemia; E78.2 Mixed hyperlipidemia; M54.50 Low back pain, unspecified
CPT/HCPCS: 36415; 80053; 80061; 85027; 86038; 86200; 86431

== ENCOUNTER 2024-01-29 09:47 | Outpatient (AMB) | payer MEDICARE, MEDICAID, SELFPAY ==
[2024-01-29 10:01] VITALS: BP 102/60; PULSE 80; O2SAT 97; BMI 32.1
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
== END 2024-01-29 10:50 | disposition home or self-care (01) ==
PROVIDERS: PCP Physician Assistant; Visit Provider Physician Assistant
DX: E11.65 Type 2 diabetes mellitus with hyperglycemia (principal); I11.0 Hypertensive heart disease with heart failure; I50.32 Chronic diastolic (congestive) heart failure; I25.10 Atherosclerotic heart disease of native coronary artery without angina pectoris
CPT/HCPCS: 99214; G2211

== ENCOUNTER 2024-04-24 11:11 | Outpatient (AMB) | payer MEDICARE, MEDICAID, SELFPAY ==
--- NOTE | 2024-04-24 11:33 | AM.OFFVISMDC ---
Intake Vital Signs 04/24/24 11:34 Height 5 ft 3 in Weight 184 lb 6 oz BMI 32.7 Blood Pressure Location Lt brachial Position Sitting Pulse Source Pulse Oximeter Temp 82 F L Pulse Oximetry (%) 95 Oxygen Delivery Method Room Air Intake Visit Reasons: SWV G0439 Intake Note: Patient is here for an Annual Wellness Visit. 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 Accompanied by: Self / Same As Patient Allergies ibuprofen [Ibuprofen] Allergy (Severe, Verified 04/25/24 09:29) ACUTE RENAL FAILURE (YRS AGO), shut kidneys down, kidneys shut down quetiapine [From Seroquel] Adverse Reaction (Intermediate, Verified 04/25/24 09:29) Sleepiness Medication List - Last Reconciled 04/24/24 by Christopher Stephenson PA-C aspirin (Adult Low Dose Aspirin) 81 mg PO DAILY atorvastatin 40 mg PO DAILY 90 days dulaglutide (Trulicity) 0.75 mg (0.5 mL) subcut QWEEK 4 weeks ezetimibe 10 mg PO DAILY flash glucose sensor ([employer] [place] 2 Sensor kit) As directed insulin glargine (Lantus Solostar U-100 Insulin) 28 units (0.28 mL) subcut BEDTIME 30 days insulin lispro (Humalog KwikPen (U-100) Insulin) 24 units (0.24 mL) subcut TID 30 days loperamide 2 mg PO TID PRN 30 days metoprolol tartrate 25 mg PO BID ondansetron HCl 8 mg PO TID 15 days pantoprazole 40 mg PO DAILY 90 days pen needle, diabetic As directed tramadol 50 mg PO Q8H PRN 14 days trazodone 150 mg PO BEDTIME 90 days HPI SWV G0439 HPI Details Patient is a 58-year-old female here today for annual wellness visit. Today we discussed patient's [place] of care and end of life planning. Does have MOLST in chart-patient full code Today we reviewed her comprehensive care plan and was scanned to chart Vaccines: Up-to-date with COVID vaccine, pneumonia vaccine and tetanus vaccine , considering shingles vaccine Colon cancer screening: utd Mammogram: Done in 05/2023, BI-RADS 1 Colorectal cancer screening: Needs repeat colonoscopy Laboratory Tests 05/09/22 03/02/23 11/27/23 07:07 08:44 09:33 RBC Hgb Creatinine 1.02 Fasting Glucose 286 H Hgb A1c (Clinic) 7.5 H 10.0 H Cholesterol 156 D LDL Cholesterol, C alc 78 Rheumatoid Factor 01/25/24 04/24/24 13:10 11:51 RBC 5.01 Hgb 15.0 Creatinine 1.04 Fasting Glucose 183 H Hgb A1c (Clinic) 7.4 H Cholesterol 129 LDL Cholesterol, C alc 54 Rheumatoid Factor < 13.0 HPI Comments History of Present Illness Details reviewed past medical history- yes reviewed surgical / hospitalization history- yes reviewed current medications- yes reviewed family history- yes home safety throw rugs? grab bars? raised toilet seat? working smoke detectors? activities of daily living difficulty bathing or showering? difficulty dressing? difficulty using the toilet? difficulty getting in and out of bed? difficulty walking? receives help from other person's with any of the above tasks? instrumental activities of daily living uses telephone - gets to place out of walking distance- go shopping for groceries- repairs own meals- does own minor home maintenance- does own laundry- does own housework- manages own money- currently takes medication- end of life planning discussed advanced directives- yes advanced directives on file? discussed wishes expressed in advanced directives. fall risk have you had any falls with injuries in the past year? have you had 2 or more falls in the past year? fall risk assessment: [facility] Medical History Nausea GERD (gastroesophageal reflux disease) Anxiety and depression History of weakness Elevated cholesterol HTN (hypertension) CAD (coronary artery disease) CHF (congestive heart failure) Irritable bowel syndrome with diarrhea Chronic nausea Surgical History History of esophagogastroduodenoscopy (EGD) Hx of colonoscopy History of vascular surgery S/P foot surgery, right S/P CABG x 3 Ulnar nerve entrapment History of lumbar fusion History of arthroscopy of left shoulder History of bunionectomy History of endometrial ablation History of carpal tunnel release History of laparoscopic cholecystectomy History of lumbar discectomy Family History Father Multiple sclerosis Mother Hypertension Diabetes Maternal Aunt Colon cancer Cervical cancer Other Mental problem Social History Household Members: Family Housing: House Alcohol intake: current Alcohol intake frequency: holidays/special occasions only Patient Tobacco Use Status: Former Tobacco user Tobacco use type: Cigarette Cigarettes Per Day: 4 e-Cigarette/Vaping Use: Never Used Substance Use Type: Marijuana service: No Current occupational status: disabled Cognitive needs: No Hearing needs: No Vision needs: No Questionnaire Medicare Wellness Checkup [age] What gender do you identify with?: female During the past 4 weeks, how much have you been bothered by emotional problems such as feeling anxious, depressed, irritable, sad or downhearted, and blue?: not at all During the past 4 weeks, has your physical & emotional health limited your social activities with family, friends, neighbors, or groups?: moderately During the past 4 weeks, how much bodily pain have you generally had?: moderate pain During the past 4 weeks, was someone available to help you if you needed & wanted help?: yes, a little During the past 4 weeks, what was the hardest physical activity you could do for at least 2 minutes?: very light Can you get to places out of walking distance without help? (For eg., can you travel alone on buses, taxis or drive your car?): Yes Can you go shopping for groceries or clothes without someone's help?: Yes Can you prepare your own meals?: Yes Can you do your housework without help?: Yes Because of any health problems, do you need the help of another person with your personal care needs such as eating, bathing, dressing or getting around the house?: No Can you handle your own money without help?: Yes During the past 4 weeks, how would you rate your health in general?: fair During the past 4 weeks how have things been going for you?: good & bad parts about equal Are you having difficulties driving your car?: not applicable, I don't use a car Do you always fasten your seat belt when you are in a car?: no During past 4 weeks, have you been bothered by the following: never: Falling or dizzy when standing up, Sexual problems?, Trouble eating well? and Problems using the telephone? and sometimes: Teeth or denture problems? and Tiredness or fatigue? Have you fallen 2 or more times in the past year?: Yes Are you afraid of falling?: No Are you a smoker?: no During the past 4 weeks, how many drinks of wine, beer, or other alcoholic beverages did you have?: no alcohol at all Do you exercise for about 20 minutes 3 or more times a week?: no, I usually do not exercise this much Have you been given information to help with the following?: no: Hazards in your house that might hurt you? and no: Keeping track of your medications? How often do you have trouble taking medicines the way you have been told to take them?: I always take medicine as prescribed How confident are you that you can control & manage most of your health problems?: very confident What is your race?: White Mini Mental State Exam (MMSE) Orientation What is the (year) (season) (date) (day) (month)?: year Where are we (state) (county) (town or city) (hospital) (floor)?: town or city Attention & Calculation (CHOOSE ONE) Spell WORLD backwards (DLROW): 5 letters Score Score: 7 Activity of Daily Living Bathing - sponge bath, tub bath or shower: receives no assistance (gets in/out by self, if usual bathing means Dressing - getting clothes from closets & drawers, including inner/outer garments & fasteners.: gets clothes & gets completely dressed without help Toileting - going to the 'toilet room' for urine/bowel elimination & cleaning self/arranging clothes: goes to toilet room, cleans self, arranges clothes without help Transfer: moves in & out of bed and chair without help (may use support object) Continence: controls urination/bowel movements completely by self Feeding: feeds self without help Total Score: 0 Information obtained from: patient Using telephone: independent Traveling: independent Shopping: independent Preparing meals: independent Housework: needs assistance Taking medicine: independent Managing money: independent PHQ-9 Over the last 2 weeks, how often have you been bothered by any of the following problems? 1. Little interest or pleasure in doing things: not at all 2. Feeling down, depressed, or hopeless: not at all 3. Trouble falling or staying asleep, or sleeping too much: nearly every day 4. Feeling tired or having little energy: several days 5. Poor appetite or overeating: several days 6. Feeling bad about yourself - or that you are a failure or have let yourself or your family down: not at all 7. Trouble concentrating on things, such as reading the newspaper or watching television: not at all 8. Moving or speaking so slowly that other people could have noticed. Or the opposite - being so fidgety or restless that you have been moving around a lot more than usual: not at all 9. Thoughts that you would be better off or of hurting yourself in some way: not at all Total score: 5 Depression Screening Interpretation: Positive Depression Screening Follow-up: Existing condition and In treatment Depression Screening Done: Yes 49315 - PHQ-9 Billing: Yes Source: Developed by Drs. Gagandeep Feliz, Pily Lawson, Alex Garcia and colleagues, with an educational neymar from [employer]. Physical Exam Vital Signs: Last Vital Signs Temp 82 F L 04/24/24 11:34 Pulse Ox 95 04/24/24 11:34 Oxygen Delivery Method Room Air 04/24/24 11:34 BMI result Body Mass Index 32.7 HEENT Other: hearing screening whisper test- failed on right side Eyes Other: vision screening- 20 20 OS OD OU Other: urinary incontinence? no Neuro Other: balance Romberg- normal tandem walk test- able walk-in turned test- able rise from sit to stand- within 2 seconds Extrem Ankle/foot/toe images: 1. NO SKIN BREAKDOWN OR ULCERATIONS NOTED. DOES HAVE SOME DECREASED SENSATION TO LIGHT TOUCH OVER THE [place]AR REGION OF HER FEET. Results AMB Hemoglobin A1c AMB Hemoglobin A1c 7.4 % Last Edit by AMRIK Wild on 04/24/24 11:52 Results Reviewed Results Reviewed: Laboratory Last Values Hgb A1c (Clinic) 7.4 % (4.0-6.0) H 04/24/24 11:51 Assessment & Plan Assessment & Plan (1) Annual wellness visit: Code(s): Z00.00 - Encounter for general adult medical examination without abnormal findings Plan: As per HPI Orders: Orders AMB Hemoglobin A1c 04/24/24 E11.65 - Type 2 diabetes mellitus with hyperglycemia Lipid Panel 04/24/24 E78.2 - Mixed hyperlipidemia Referrals Gastroenterology Referral R93.3 - Abnormal findings on diagnostic imaging of other parts of digestive tract Quality Reporting (2019) Depression/Bipolar (159/160/161/177) PHQ-9: Total score: 5 Coding Level of Care Code Medicare Subsequent (G0439) Diagnoses Annual wellness visit Z00.00 CPT Codes Advance Care Planning - Advance Care Planning discussion: On file, no changes ([id number]) Advance Care Planning - Time spent: 1-15 minutes, on File ([id number]) Advance Care Planning Advance Care Planning discussion: On file, no changes Date of discussion: 04/24/24 Forms completed: MOLST Time spent: 1-15 minutes, on File Actual minutes spent: 4
[2024-04-24 11:34] VITALS: TEMP 27.7; O2SAT 95; BMI 32.7
== END 2024-04-24 12:11 | disposition home or self-care (01) ==
PROVIDERS: PCP Physician Assistant; Visit Provider Physician Assistant
DX: E11.65 Type 2 diabetes mellitus with hyperglycemia (principal)
CPT/HCPCS: 1123F; 83036; G0439

== ENCOUNTER 2024-07-05 10:18 | Outpatient (AMB) | payer MEDICARE, MEDICAID, SELFPAY ==
[2024-07-05 10:27] VITALS: BP 152/69; PULSE 73; BMI 33.2
--- NOTE | 2024-07-05 10:27 | A.OFFVIS_ITS ---
Vital Signs 07/05/24 10:27 Height 5 ft 3 in Weight 187 lb 6.287 oz BMI 33.2 BP 152/69 H Blood Pressure Location Lt brachial Position Sitting Pulse 73 Intake Visit Reasons: abnormal findings on imaging Intake Note: Jane presents in the office as a follow up. CC: She states that she is just having all the same issues with diarrhea. Superintendent Menagerie Required: No Allergies ibuprofen [Ibuprofen] Allergy (Severe, Verified 07/05/24 10:27) ACUTE RENAL FAILURE (YRS AGO), shut kidneys down, kidneys shut down quetiapine [From Seroquel] Adverse Reaction (Intermediate, Verified 07/05/24 10:27) Sleepiness HPI HPI abnormal findings on imaging: Details: A 59-year-old female diabetic, being seen for f/u RECAP: She had nausea and abn bowle habit was scheduled for EGD and colonoscopy bx with reactive gastropathy, tubular adenomas removed, fair prep she takes tramadol prn diarrhea from posisble SIBO good response to rifaximin, got 2 courses reglan felt it never helped,she did feel benefit from rifaximin--I gave her x 2 courses c diff 08/2019--neg celiac panels neg x 2 GES--16% at 4 hrs INTERIM: she just started trulicity few months ago for DM she has on and off nausea, takes zofran prn, twice a week she has diarrhea-chronic, twice a week at least--chronic --other times is more formed no gerd no dysphagia no chest or abdominal pain appetite is good doesn't feel imodium is that good she takes tramadol v infreq trazodone at night avoids dairy as upsets her stomach EXAM: GENERAL: The patient is well developed and nontoxic. VITAL SIGNS:see workflow HEENT: Nonicteric sclerae, PERRLA, EOMI. Oropharynx clear. Moist mucous membranes. Conjunctivae appear well perfused. No thyroid mass. CHEST: Chest wall is nontender. HEART: Regular rate and rhythm 2/6 ESM at aortic area (ECHO from [facility] with aortic thickening and mild TR) LUNGS: Clear to auscultation bilaterally. ABDOMEN: Soft, positive bowel sounds, nontender, no organomegaly.no flank tenderness SKIN: No rash, no excessive bruising, petechiae, or purpura. NEUROLOGIC: Cranial nerves II-XII intact without motor/sensory deficit. Psych: nml MS: nml A/P: 1/ nausea from gastroparesis, medications, infrequent, zofran works well 2/ altered bowel habit with diarrhea, could be SIBO due to her DM and medication,s v BAM, CHO intolerance or overflow diarrhea, due repeat colonoscopy PLAN: 1/ trial of colestipol prn to see if helps diarrhea 2/ repeat colonocopy now with suprep, stop trulicity 1 week before and half dose lantus night before PFSH Medical History Nausea GERD (gastroesophageal reflux disease) Anxiety and depression History of weakness Elevated cholesterol HTN (hypertension) CAD (coronary artery disease) CHF (congestive heart failure) Irritable bowel syndrome with diarrhea Chronic nausea Surgical History History of esophagogastroduodenoscopy (EGD) Hx of colonoscopy History of vascular surgery S/P foot surgery, right S/P CABG x 3 Ulnar nerve entrapment History of lumbar fusion History of arthroscopy of left shoulder History of bunionectomy History of endometrial ablation History of carpal tunnel release History of laparoscopic cholecystectomy History of lumbar discectomy Family History Father Multiple sclerosis Mother Hypertension Diabetes Maternal Aunt Colon cancer Cervical cancer Other Mental problem Social History Household Members: Family Housing: House Alcohol intake: current Alcohol intake frequency: holidays/special occasions only Patient Tobacco Use Status: Former Tobacco user Tobacco use type: Cigarette Cigarettes Per Day: 4 e-Cigarette/Vaping Use: Never Used Substance Use Type: Marijuana service: No Current occupational status: disabled Cognitive needs: No Hearing needs: No Vision needs: No Physical Exam Vital Signs: Last Vital Signs Pulse 73 07/05/24 10:27 BP 152/69 H 07/05/24 10:27 BMI result Body Mass Index 33.2 Assessment & Plan Assessment & Plan (1) Abnormal bowel habits: Code(s): R19.8 - Other specified symptoms and signs involving the digestive system and abdomen Category: Medical Plan: see above Medications: New colestipol 1 g PO BID 60 tabs 0RF sodium,potassium,mag sulfates 17.5-3.13-1.6 gram (Suprep Bowel Prep Kit) DILUTE; drink 1/2 at 6-8 pm and half at 11 PM- 1AM 354 mL 0RF Coding Level of Care Code Est Pt Level 4 (42243) Diagnoses Abnormal bowel habits R19.8
== END 2024-07-05 10:58 | disposition home or self-care (01) ==
PROVIDERS: PCP Physician Assistant; Visit Provider Internal Medicine Gastroenterology
DX: R19.8 Other specified symptoms and signs involving the digestive system and abdomen (principal)
CPT/HCPCS: 99214

== ENCOUNTER → 2024-07-05 10:18 | Outpatient (BNVA) | payer MEDICARE, MEDICAID, SELFPAY | PROVIDERS: PCP Physician Assistant; Visit Provider Internal Medicine Gastroenterology | DX: R19.8 Other specified symptoms and signs involving the digestive system and abdomen (principal) | CPT/HCPCS: 99212 ==

== ENCOUNTER 2024-08-22 11:08 | Outpatient (AMB) | payer MEDICARE, MEDICAID, SELFPAY ==
--- NOTE | 2024-08-22 11:24 | A.OFFPC_ITS ---
Vital Signs 08/22/24 11:25 Height 5 ft 3 in Weight 191 lb 8 oz BMI 33.9 BP 132/60 Blood Pressure Location Lt brachial Position Sitting Pulse 63 Pulse Source Pulse Oximeter Pulse Oximetry (%) 95 Oxygen Delivery Method Room Air Intake Visit Reasons: f/u DMII/CVA Stage Builder Required: No Accompanied by: Self / Same As Patient Allergies ibuprofen [Ibuprofen] Allergy (Severe, Verified 08/22/24 11:47) ACUTE RENAL FAILURE (YRS AGO), shut kidneys down, kidneys shut down dulaglutide [From Trulicity] Adverse Reaction (Intermediate, Verified 08/22/24 11:50) Fatigue quetiapine [From Seroquel] Adverse Reaction (Intermediate, Verified 08/22/24 11:47) Sleepiness Medication List - Last Reconciled 08/22/24 by Christopher Stephenson PA-C aspirin (Adult Low Dose Aspirin) 81 mg PO DAILY atorvastatin 40 mg PO DAILY 90 days colestipol 1 g PO BID 90 days ezetimibe 10 mg PO DAILY flash glucose sensor (FreeStyle [place] 2 Sensor kit) As directed insulin glargine (Lantus Solostar U-100 Insulin) 28 units (0.28 mL) subcut BEDTIME 30 days insulin lispro (Humalog KwikPen (U-100) Insulin) 24 units (0.24 mL) subcut TID 30 days liraglutide (Victoza 2-Ghulam) 1.8 mg (0.3 mL) subcut DAILY 4 weeks loperamide 2 mg PO TID PRN 30 days metoprolol tartrate 25 mg PO BID ondansetron HCl 8 mg PO TID 15 days pantoprazole 40 mg PO DAILY 90 days pen needle, diabetic As directed sodium,potassium,mag sulfates 17.5-3.13-1.6 gram (Suprep Bowel Prep Kit) DILUTE; drink 1/2 at 6-8 pm and half at 11 PM- 1AM tramadol 50 mg PO Q8H PRN 7 days trazodone 150 mg PO BEDTIME 90 days Tobacco use date assessed: 11/27/23 Dental Screening Dental Screen Date: 11/27/23 HPI f/u DMII/CVA HPI Details Patient is a 59-year-old female here today for follow-up visit. 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 .. CVA(October of 2022)- has followed up with Neurology, has been referred to vascular as she does have intracranial arterial stenosis. Has done occupational therapy . She has been left with right-sided upper extremity neuromuscular weakness. Also does have bilateral carotid stenosis and has been followed by vascular for this. She reports she has generally quit smoking though does have a cigarette here and there due to stress. ? .. ? DMII : Today's A1c above 8. Continues on short-acting and long-acting preprandial insulin. She reports since starting Trulicity she has been having lot of fatigued and increased hunger. Unfortunately she has lost some for glycemic control. She has lost follow-up with her previous restaurant bartender in his looking to get established with a new restaurant bartender. PLAN: Will transition back to Victoza daily injections as she had better glycemic control in the past on this medication. Will discontinue Trulicity. .. Class 1 obesity: Patient does understand her BMI is over 30 will work on trying to be more physically active and adapt to better eating habits to reduce her weight. She was on Victoza in the past which help with weight reduction as well. She does have comorbid cardiovascular disease ? .. ? Depression:? She reports her depression and anxiety have been elevated as of late as she has been having issues with her mother whom lives with her and her home.? She does report they argue a lot and sometimes the arguments become physical. ? . ? Insomnia: Continues on trazodone with good effect on her sleep.. ? .. ? CAD ( CABG) & CHF - followed by cardiology. Most recent lipid panel showing excellent control over total cholesterol and LDL. ?Deneis any CP , lower extemity edema [facility] Medical History (Updated 08/22/24 @ 12:02 by Christopher Stephenson PA-C) Nausea GERD (gastroesophageal reflux disease) Anxiety and depression History of weakness Elevated cholesterol HTN (hypertension) CHF (congestive heart failure) Irritable bowel syndrome with diarrhea Chronic nausea Surgical History History of esophagogastroduodenoscopy (EGD) Hx of colonoscopy History of vascular surgery S/P foot surgery, right S/P CABG x 3 Ulnar nerve entrapment History of lumbar fusion History of arthroscopy of left shoulder History of bunionectomy History of endometrial ablation History of carpal tunnel release History of laparoscopic cholecystectomy History of lumbar discectomy Family History Father Multiple sclerosis Mother Hypertension Diabetes Maternal Aunt Colon cancer Cervical cancer Other Mental problem Social History Household Members: Family Housing: House Alcohol intake: current Alcohol intake frequency: holidays/special occasions only Patient Tobacco Use Status: Former Tobacco user Tobacco use type: Cigarette Cigarettes Per Day: 4 e-Cigarette/Vaping Use: Never Used Substance Use Type: Marijuana service: No Current occupational status: disabled Cognitive needs: No Hearing needs: No Vision needs: No Questionnaire Thrive Questionnaire Date Thrive assessed: 11/27/23 CAROLYN-7 AMB Questionnaire CAROLYN-7 Date CAROLYN - 7 assessed: 11/27/23 Source: Developed by Drs. Gagandeep Feliz, Pily Lawson, Alex Garcia and colleagues, with an educational neymar from [employer] Review of Systems Const Reports fatigue and Denies headache(s) Eyes Denies loss of vision ENT Denies vertigo, Denies dizziness, Denies headache(s) and Denies sore throat Card Denies chest pain, Denies leg edema and Denies lightheadedness Resp Denies cough, Denies hemoptysis and Denies wheezing GI Denies abdominal pain, Denies melena, Denies constipation, Denies diarrhea and Denies vomiting Denies urinary frequency, Denies dysuria and Denies urinary urgency Musc Denies arthralgias, Denies joint swelling, Denies numbness and Denies tingling Neuro Denies Abnormal speech present, Denies behavioral changes, Denies vertigo, Denies dizziness, Denies headache(s), Denies loss of vision, Denies memory loss, Denies numbness and Denies tingling Psych Denies anxiety, Denies behavioral changes, Denies depression, Denies memory loss and Denies panic attacks Endo Reports fatigue Panda/Lymph Denies easy bleeding and Denies easy bruising Aller/Immun Denies wheezing Physical exam (Primary Care) Vital Signs: Last Vital Signs Pulse 63 08/22/24 11:25 BP 132/60 08/22/24 11:25 Pulse Ox 95 08/22/24 11:25 Oxygen Delivery Method Room Air 08/22/24 11:25 BMI result Body Mass Index 33.9 Tobacco/Smoking Status: Tobacco use Status Tobacco use date assessed 11/27/23 08/22/24 11:27 Patient Tobacco Use Status Former Tobacco user 08/22/24 11:27 Tobacco use type Cigarette 08/22/24 11:27 e-Cigarette/Vaping Use Never Used 08/22/24 11:27 Thrive Assessment: Date of Thrive Assessment Date Thrive assessed 11/27/23 08/22/24 11:27 Const General: healthy appearing, no acute distress, alert and awake Nutritional Appearance: well nourished Orientation/consciousness: oriented to person, oriented to place and oriented to time HENMT Ears: TM's normal bilaterally General nose exam: Normal nasal mucous membranes and turbinates present Eyes Conjunctivae: conjunctivae normal Sclerae: sclerae normal Pupils: Equal, round and reactive pupils present Neck Neck: Yes no lymphadenopathy and Yes no JVD Thyroid: Thyroid normal Carotids: no bruits Resp Effort & Inspection: normal respiratory effort and not tachypneic Auscultation: no crackles, no rales, no rhonchi and no wheezes Cardio Rate: regular rate Rhythm: regular rhythm Heart sounds: no murmurs and normal S1 and S2 GI Palpation (GI): Soft to palpation, nontender, no hepatomegaly and no splenomegaly Auscultation: normal bowel sounds Skin General skin exam: no rashes or lesions noted and dry skin Neuro General: oriented to person, oriented to place and oriented to time Cranial nerves: Yes Equal, round and reactive pupils present Speech: No Abnormal speech present Gait exam (Neuro): Normal gait present Motor exam (neuro): no tremor noted Extrem Right upper extremity: full ROM Left upper extremity: full ROM Right lower extremity: full ROM; no edema Left lower extremity: full ROM; no edema Psych Mental Status: mental status grossly normal Speech and movement: Normal speech and movement present Affect: normal affect Attitude: cooperative Thought process: Normal thought process present Office Procedures Flu Questionnaire Does the patient have a severe egg allergy?: No Does the patient have severe life threatening allergies?: No Does the patient have a fever or illness today?: No Has the patient ever had Guillain-Jackson Syndrome?: No Has the patient ever had any past reaction to a flu shot?: No Results AMB Hemoglobin A1c AMB Hemoglobin A1c 8.2 % Last Edit by AMRIK Wild on 08/22/24 11:35 Immunizations Fluarix Triv [id number] (PF) 45 mcg (15 mcg x 3)/0.5 mL IM syringe Performing Provider: Christopher Stephenson PA-C [facility] Administered by: AMRIK Wild on 08/22/24 11:32 Dose Route Admin Location Dispensed Lot Number Expiration Date [facility] Commissions Specialist 0.5 mL IM Right Deltoid 0.5 mL [id number] 02/10/25 [id number] [employer] VIS Given Date VIS Provided VIS Publication Date 08/22/24 Single Vaccine 21 Eligibility Eligibility Date Funding Source Not [facility] Eligible 08/22/24 Private Results Reviewed Results Reviewed: Laboratory Last Values Hgb A1c (Clinic) 8.2 % (4.0-6.0) H 08/22/24 11:34 Coding Level of Care Code Est Pt Level 4 (76168) Diagnoses Type 2 diabetes mellitus with hyperglycemia, without long-term current use of insulin E11.65 Diabetes mellitus oysterman insulin use: without detention use Diabetes mellitus complication status: with hyperglycemia Chronic diastolic congestive heart failure I50.32 Heart failure type: diastolic Heart failure chronicity: chronic Bilateral carotid artery stenosis I65.23 Laterality: bilateral Cerebral infarction, left hemisphere I63.9 Assessment & Plan Assessment & Plan (1) DMII (diabetes mellitus, type 2): Code(s): E11.9 - Type 2 diabetes mellitus without complications Category: Medical Qualifiers: Diabetes mellitus oysterman insulin use: without oysterman use Diabetes mellitus complication status: with hyperglycemia Qualified Code(s): E11.65 - Type 2 diabetes mellitus with hyperglycemia Plan: Patient has suboptimal control type 2 diabetes. She reports Trulicity has been causing her side effects of fatigue and increased hunger. She has gained weight since last office visit. She would like to return back to using Victoza as she was feeling better and had better glycemic control in the past. She will continue her current doses of Lantus and Humalog. She would like to establish care with a restaurant bartender to given put on med management on her blood sugars. (2) CHF (congestive heart failure): Code(s): I50.9 - Heart failure, unspecified Category: Medical Qualifiers: Heart failure type: diastolic Heart failure chronicity: chronic Qualified Code(s): I50.32 - Chronic diastolic (congestive) heart failure Plan: Patient followed by cardiology in [place]. She has not had any overt signs decompensated heart failure. She follows her word processing supervisor once a year. (3) Carotid artery stenosis: Comment: 10/2022 ([facility] [place] CTA of the head and neck with a right stenosis at VR, right ICA stenosis of 70% and left ICA stenosis of 50%. Code(s): I65.29 - Occlusion and stenosis of unspecified carotid artery Category: Medical Qualifiers: Laterality: bilateral Qualified Code(s): I65.23 - Occlusion and stenosis of bilateral carotid arteries Plan: Patient is followed by Cardiology. Most recent lipid panel showing good control over total cholesterol and LDL. Goal LDL to be optimally below 70. (4) Cerebral infarction, left hemisphere: Comment: [facility] [place] 10/31/22 - left hemispheric infarct in watershed areas of left frontal, temporal and parietal territories. Code(s): I63.9 - Cerebral infarction, unspecified Category: Medical Plan: As per HPI patient did suffer a stroke in 2022. She has been left with right weakness and decreased desk 80 and pain. She does use tramadol on a p.r.n. basis for her pain and her lower back pain. Orders: Orders Influenza [id number] Immunization Today Z23 - Encounter for immunization AMB Hemoglobin A1c Today E11.65 - Type 2 diabetes mellitus with hyperglycemia Microalbumin, Random (w Creat) Today I10 - Essential (primary) hypertension NT-proBNP Today I50.32 - Chronic diastolic (congestive) heart failure Lipid Panel Today E78.2 - Mixed hyperlipidemia Comprehensive [place]. Panel Fast Today I25.10 - Atherosclerotic heart disease of [place] coronary artery without angina pectoris Complete Blood Count no Diff Today E11.65 - Type 2 diabetes mellitus with hyperglycemia Referrals Endocrinology Referral E11.65 - Type 2 diabetes mellitus with hyperglycemia Medications: New liraglutide (Victoza 2-Ghulam) 1.8 mg (0.3 mL) subcut DAILY 4 weeks 9 mL 3RF E11.65 - Type 2 diabetes mellitus with hyperglycemia Changed From tramadol 50 mg PO Q8H 14 days PRN 42 tabs 3RF pain M54.5 - Low back pain, M79.601 - Pain in right arm To tramadol 50 mg PO Q8H 7 days PRN 21 tabs 3RF pain M54.5 - Low back pain, M79.601 - Pain in right arm Refilled metoprolol tartrate 25 mg PO BID 180 tabs 2RF ondansetron HCl 8 mg PO TID 15 days 45 tabs 2RF Nausea R11.0 - Nausea insulin glargine (Lantus Solostar U-100 Insulin) 28 units (0.28 mL) subcut BEDTIME 30 days 8.4 mL 6RF E11.9 - Type 2 diabetes mellitus without complications insulin lispro (Humalog KwikPen (U-100) Insulin) Sliding scale 8-24 units maximum 24 units (0.24 mL) subcut TID 30 days 21.6 mL 4RF E11.65 - Type 2 diabetes mellitus with hyperglycemia pantoprazole 40 mg PO DAILY 90 days 90 tabs 2RF K21.9 - Gastro-esophageal reflux disease without esophagitis loperamide 2 mg PO TID 30 days PRN 90 caps 2RF loose stool K58.0 - Irritable bowel syndrome with diarrhea Discontinued dulaglutide (Trulicity) Discontinued Reason: Doctor's Order 0.75 mg (0.5 mL) subcut QWEEK 4 weeks 2 mL 1RF E11.65 - Type 2 diabetes mellitus with hyperglycemia Patient Instructions: Goal: A1c to be below 7.0, LDL optimally below 70 Barriers: Adherence to physical activity and healthy eating habits.
[2024-08-22 11:25] VITALS: BP 132/60; PULSE 63; O2SAT 95; BMI 33.9
== END 2024-08-22 12:00 | disposition home or self-care (01) ==
PROVIDERS: PCP Physician Assistant; Visit Provider Physician Assistant
DX: E11.65 Type 2 diabetes mellitus with hyperglycemia (principal); I50.32 Chronic diastolic (congestive) heart failure; I65.23 Occlusion and stenosis of bilateral carotid arteries; I63.9 Cerebral infarction, unspecified; Z23 Encounter for immunization

== ENCOUNTER → 2024-08-22 11:08 | Outpatient (BNVA) | payer MEDICARE, MEDICAID, SELFPAY | PROVIDERS: PCP Physician Assistant; Visit Provider Physician Assistant | DX: E11.51 Type 2 diabetes mellitus with diabetic peripheral angiopathy without gangrene (principal); E11.65 Type 2 diabetes mellitus with hyperglycemia; E11.43 Type 2 diabetes mellitus with diabetic autonomic (poly)neuropathy; K31.84 Gastroparesis; I11.0 Hypertensive heart disease with heart failure; I50.32 Chronic diastolic (congestive) heart failure; I65.23 Occlusion and stenosis of bilateral carotid arteries; I25.10 Atherosclerotic heart disease of native coronary artery without angina pectoris; E78.5 Hyperlipidemia, unspecified; M54.50 Low back pain, unspecified; M79.601 Pain in right arm; Z23 Encounter for immunization; Z95.1 Presence of aortocoronary bypass graft; Z87.891 Personal history of nicotine dependence; Z86.73 Personal history of transient ischemic attack (TIA), and cerebral infarction without residual deficits; Z79.4 Long term (current) use of insulin | CPT/HCPCS: 83036; 90471; 90656; 99212 ==

== ENCOUNTER 2024-09-13 11:33 | Outpatient (AMB) | payer MEDICARE, MEDICAID, SELFPAY ==
[2024-09-13 11:36] VITALS: BP 130/62; PULSE 92; TEMP 36.4; O2SAT 97; BMI 33.8
--- NOTE | 2024-09-13 11:36 | MHC.OFFWIV ---
Intake Vital Signs 09/13/24 11:36 Height 5 ft 3 in Weight 191 lb BMI 33.8 BP 130/62 Blood Pressure Location Rt brachial Position Sitting Pulse 92 Pulse Source Pulse Oximeter Temp 97.6 F Temp Source Oral Pulse Oximetry (%) 97 Oxygen Delivery Method Room Air Intake Visit Reasons: EP-lt thigh pain Intake Note: pt is here for left thigh pain Patient Tobacco Use Status: Former Tobacco user Allergies ibuprofen [Ibuprofen] Allergy (Severe, Verified 09/13/24 11:36) ACUTE RENAL FAILURE (YRS AGO), shut kidneys down, kidneys shut down dulaglutide [From Trulicity] Adverse Reaction (Intermediate, Verified 09/13/24 11:36) Fatigue quetiapine [From Seroquel] Adverse Reaction (Intermediate, Verified 09/13/24 11:36) Sleepiness Do you need a note to return to daycare/school/sports/work: No HPI HPI Comments History of Present Illness Details This is a 59-year-old female who presented to the walk-in clinic complaining of a rash and burning sensation to the medial aspect of her left thigh. She states this started about 2 or 3 days ago but the rash continues to spread up her thigh. She denies any fevers or chills. She denies any chest pain or shortness of breath. She denies any abdominal pain or nausea/vomiting/diarrhea. [facility] Medical History (Updated 08/22/24 @ 12:02 by Christopher Stephenson PA-C) Nausea GERD (gastroesophageal reflux disease) Anxiety and depression History of weakness Elevated cholesterol HTN (hypertension) CHF (congestive heart failure) Irritable bowel syndrome with diarrhea Chronic nausea Surgical History History of esophagogastroduodenoscopy (EGD) Hx of colonoscopy History of vascular surgery S/P foot surgery, right S/P CABG x 3 Ulnar nerve entrapment History of lumbar fusion History of arthroscopy of left shoulder History of bunionectomy History of endometrial ablation History of carpal tunnel release History of laparoscopic cholecystectomy History of lumbar discectomy Family History Father Multiple sclerosis Mother Hypertension Diabetes Maternal Aunt Colon cancer Cervical cancer Other Mental problem Social History Household Members: Family Housing: House Alcohol intake: current Alcohol intake frequency: holidays/special occasions only Patient Tobacco Use Status: Former Tobacco user Tobacco use type: Cigarette Cigarettes Per Day: 4 e-Cigarette/Vaping Use: Never Used Substance Use Type: Marijuana service: No Current occupational status: disabled Cognitive needs: No Hearing needs: No Vision needs: No Review of Systems Const All systems reviewed & are unremarkable except as noted in HPI and below Reports no additional complaints Eyes Reports no additional complaints ENT Reports no additional complaints Card Reports no additional complaints Resp Reports no additional complaints GI Reports no additional complaints Reports no additional complaints Musc Reports no additional complaints Skin/Breast Reports system reviewed and no additional complaints, except as documented Neuro Reports no additional complaints Psych Reports no additional complaints Endo Reports no additional complaints Panda/Lymph Reports no additional complaints Aller/Immun Reports no additional complaints Physical Exam Vital Signs: Last Vital Signs Temp 97.6 F 09/13/24 11:36 Pulse 92 09/13/24 11:36 BP 130/62 09/13/24 11:36 Pulse Ox 97 09/13/24 11:36 Oxygen Delivery Method Room Air 09/13/24 11:36 BMI result Body Mass Index 33.8 Const Other: Vital signs reviewed. Constitutional: Non-toxic appearing. No acute distress. Well-developed and well-nourished. HEENT: Normocephalic and atraumatic. Skin: There are erythematous papules and vesicles with few pustules in a dermatomal distribution to the medial left thigh. Neck: Full and painless range of motion. No cervical lymphadenopathy. Cardio: Regular rate. No lower extremity edema Pulmonary: No respiratory distress. No accessory muscle usage. Musculoskeletal: Normal range of motion in joints throughout the body. No deformity or other signs of injury. Neuro: Alert and oriented x4. Cranial nerves 2-12 grossly intact. No focal deficits appreciated. Psych: Normal mood and affect. Assessment & Plan Assessment & Plan (1) Herpes zoster: Code(s): B02.9 - Zoster without complications Qualifiers: Herpes zoster complications: without complications Qualified Code(s): B02.9 - Zoster without complications Plan: This is a 59-year-old female who presented to the walk-in clinic complaining of a rash and burning to her left medial thigh. On physical examination, she has erythematous papules, vesicles, and occasional papules in a dermatomal distribution consistent with herpes zoster. Patient was given a prescription for p.o. valacyclovir 1000 mg 3 times daily x7 days. She was instructed to avoid contact with any individuals or children who have not varicella and patient should keep the rash covered to avoid spread. Patient verbalized understanding and she is in agreement with the plan. Medications: New valacyclovir 1,000 mg PO TID 7 days 21 tabs 0RF Coding Level of Care Code Est Pt Level 3 (42385) Diagnoses Herpes zoster without complication B02.9 Herpes zoster complications: without complications
== END 2024-09-13 12:08 | disposition home or self-care (01) ==
PROVIDERS: PCP Physician Assistant; Visit Provider Physician Assistant Medical
DX: B02.9 Zoster without complications (principal)

== ENCOUNTER 2024-09-25 14:27 | Outpatient (AMB) | payer MEDICARE, MEDICAID, SELFPAY ==
[2024-09-25 14:34] VITALS: BP 149/80; PULSE 84; BMI 32.8
--- NOTE | 2024-09-25 14:34 | A.OFFVIS_ITS ---
Vital Signs 09/25/24 14:34 Height 5 ft 3 in Weight 185 lb 3.013 oz BMI 32.8 BP 149/80 H Blood Pressure Location Rt brachial Position Sitting Pulse 84 Pulse Source Pulse Oximeter Intake Visit Reasons: Type 2 diabetes mellitus with hyperglycemia Intake Note: NEW Patient presents today to establish treatment for Type 2 Diabetes Mellitus & Hyperglycemia: Last Diabetic eye exam was on: DUE Last Podiatry exam was on: Patient does not see a Nurse Wound Care Most recent HbA1c: 8.2%, 08/22/2024 Random Glucose- 209 mg/dL, Today Private Investigator Surveillance Required: No Accompanied by: Self / Same As Patient Allergies ibuprofen [Ibuprofen] Allergy (Severe, Verified 09/25/24 14:36) ACUTE RENAL FAILURE (YRS AGO), shut kidneys down, kidneys shut down dulaglutide [From Trulicity] Adverse Reaction (Intermediate, Verified 09/25/24 14:36) Fatigue quetiapine [From Seroquel] Adverse Reaction (Intermediate, Verified 09/25/24 14:36) Sleepiness Medication List - Last Reconciled 09/25/24 by Katia Ren MD aspirin (Adult Low Dose Aspirin) 81 mg PO DAILY atorvastatin 40 mg PO DAILY 90 days colestipol 1 g PO BID 90 days ezetimibe 10 mg PO DAILY flash glucose sensor (FreeStyle [place] 2 Sensor kit) As directed insulin glargine (Lantus Solostar U-100 Insulin) 28 units (0.28 mL) subcut BEDTIME 30 days insulin lispro (Humalog KwikPen (U-100) Insulin) Sliding scale 8-24 units maximum subcutaneously 3 times a day; Sliding scale 8-24 units maximum loperamide 2 mg PO TID PRN 30 days metoprolol tartrate 25 mg PO BID ondansetron HCl 8 mg PO TID 15 days pantoprazole 40 mg PO DAILY 90 days pen needle, diabetic As directed tirzepatide (Mounjaro) 2.5 mg (0.5 mL) subcut QWEEK 4 weeks tramadol 25 mg PO Q8H PRN trazodone 150 mg PO BEDTIME 90 days valacyclovir 1,000 mg PO TID 7 days HPI Comments Details: This is a 59 year old female with IDDM presenting for consultation Medical history: CABG, PAD, CVA (10/2022) PCP: Christopher Stephenson Current medications: Lantus 28 units, Lispro 8-24 units TID cc sliding scale, Victoza 1.8 daily just stopped and she is starting Mounjaro this week at 2.5 with plan to increase after one month to 5mg Past medications: Did not tolerate trulicity due to fatigue and less glucose control A1C 8.2% from 7.4% Did not bring meter today. ROS CONSTITUTIONAL: Denies weight loss, fever and chills. HEENT: Denies changes in vision and hearing. RESPIRATORY: Denies SOB and cough. CV: Denies palpitations and CP GI: Denies abdominal pain, nausea, vomiting and diarrhea. : Denies dysuria and urinary frequency. MSK: Denies new myalgia and joint pain. SKIN: Denies rash and pruritus. NEUROLOGICAL: Denies headache PSYCHIATRIC: Denies recent changes in mood. PHYSICAL EXAM: GENERAL: Alert and oriented x 3. NAD EYES: EOMI. Anicteric. HENT: Moist mucous membranes. No scleral icterus. No cervical lymphadenopathy. LUNGS: Clear to auscultation bilaterally. CARDIOVASCULAR: Regular rate and rhythm. No murmur. No JVD. ABDOMEN: Soft, non-tender +bs EXTREMITIES: No edema. Non-tender. SKIN: No rashes or lesions. Warm. NEUROLOGIC: No focal neurological deficits. CN II-XII grossly intact PSYCHIATRIC: Cooperative. Appropriate mood and affect [facility] Medical History Nausea GERD (gastroesophageal reflux disease) Anxiety and depression History of weakness Elevated cholesterol HTN (hypertension) CHF (congestive heart failure) Irritable bowel syndrome with diarrhea Chronic nausea Surgical History History of esophagogastroduodenoscopy (EGD) Hx of colonoscopy History of vascular surgery S/P foot surgery, right S/P CABG x 3 Ulnar nerve entrapment History of lumbar fusion History of arthroscopy of left shoulder History of bunionectomy History of endometrial ablation History of carpal tunnel release History of laparoscopic cholecystectomy History of lumbar discectomy Family History Father Multiple sclerosis Mother Hypertension Diabetes Maternal Aunt Colon cancer Cervical cancer Other Mental problem Social History Household Members: Family Housing: House Alcohol intake: current Alcohol intake frequency: holidays/special occasions only Patient Tobacco Use Status: Former Tobacco user Tobacco use type: Cigarette Cigarettes Per Day: 4 e-Cigarette/Vaping Use: Never Used Substance Use Type: Marijuana service: No Current occupational status: disabled Cognitive needs: No Hearing needs: No Vision needs: No Physical Exam Vital Signs: Last Vital Signs Pulse 84 09/25/24 14:34 BP 149/80 H 09/25/24 14:34 BMI result Body Mass Index 32.8 Results Reviewed Results Reviewed: Laboratory Last Values Glucose (Clinic) 209 mg/dL (60-115) H 09/25/24 14:41 Assessment & Plan Assessment & Plan (1) DMII (diabetes mellitus, type 2): Code(s): E11.9 - Type 2 diabetes mellitus without complications Category: Medical Qualifiers: Diabetes mellitus complication status: with hyperglycemia Diabetes mellitus longterm insulin use: without intermediate school teacher use Qualified Code(s): E11.65 - Type 2 diabetes mellitus with hyperglycemia Plan: suboptimal control Didnt bring meter today She will make the medication changes already advised by pcp and follow up in 3-5 weeks for review Medications: New insulin lispro (Humalog KwikPen (U-100) Insulin) Sliding scale 8-24 units maximum subcutaneously 3 times a day; Sliding scale 8-24 units maximum 15 mL 3RF E11.65 - Type 2 diabetes mellitus with hyperglycemia Coding Level of Care Code Est Pt Level 4 (34395) Diagnoses Type 2 diabetes mellitus with hyperglycemia, without long-term current use of insulin E11.65 Diabetes mellitus complication status: with hyperglycemia Diabetes mellitus intermediate school teacher insulin use: without longterm use
[2024-09-25 14:47] LABS: Glucose, Whole Blood 209 mg/dL (60-115)
== END 2024-09-25 15:11 | disposition home or self-care (01) ==
PROVIDERS: PCP Physician Assistant; Visit Provider Internal Medicine
DX: E11.65 Type 2 diabetes mellitus with hyperglycemia (principal)

== ENCOUNTER → 2024-09-25 14:27 | Outpatient (BNVA) | payer MEDICARE, MEDICAID, SELFPAY | PROVIDERS: PCP Physician Assistant; Visit Provider Internal Medicine | DX: E11.65 Type 2 diabetes mellitus with hyperglycemia (principal); Z79.4 Long term (current) use of insulin | CPT/HCPCS: 82947; 99212 ==

== ENCOUNTER 2024-10-24 09:07 | Day surgery (SDC) | payer MEDICARE, MEDICAID, SELFPAY ==
[2024-10-22 14:36] VITALS: BMI 32.8
[2024-10-22 14:57] VITALS: BMI 33.7
--- NOTE | 2024-10-23 10:49 | P.CONAN_ITS ---
Documented by User: Meseret Canales NP 10/23/24 10:54 HPI - Anesthesia Eval Consult details Narrative: 59yo F for Colonoscopy Follows [facility] for CAD s/p CABG x 3 2017, PVD. Last office visit 10/22/24 and stable for 1 year f/u Anesthesia Pre-Procedure Meds Is the patient on any of the following meds?: GLP1/DPP4 PMFSH Active Problems Active Problems: All Active Problems Abnormal bowel habits (Acute) Annual wellness visit (Acute) GERD (gastroesophageal reflux disease) (Acute) Bilateral hand pain (Acute) Breast cancer screening (Acute) Cervical cancer screening (Acute) CHF (congestive heart failure) (Acute) HTN (hypertension) (Acute) Shift work sleep disorder (Acute) Excessive daytime sleepiness (Acute) Obese (Acute) Right corneal abrasion (Acute) Hyperlipidemia (Acute) Hospital discharge follow-up (Acute) Carotid artery stenosis (Acute) Cerebral infarction, left hemisphere (Acute) Tricuspid incompetence (Acute) Peripheral neuropathy (Acute) Medicare annual wellness visit, initial (Acute) DMII (diabetes mellitus, type 2) (Acute) Abnormal colonoscopy (Acute) H/O chronic hepatitis (Acute) Lumbar spine pain (Acute) Insomnia (Acute) Past Medical History Medical History Nausea GERD (gastroesophageal reflux disease) Anxiety and depression History of weakness Elevated cholesterol HTN (hypertension) CHF (congestive heart failure) Irritable bowel syndrome with diarrhea Chronic nausea Family History Family History Father Multiple sclerosis Mother Hypertension Diabetes Maternal Aunt Colon cancer Cervical cancer Other Mental problem Surgical History Surgical History History of esophagogastroduodenoscopy (EGD) Hx of colonoscopy History of vascular surgery S/P foot surgery, right S/P CABG x 3 Ulnar nerve entrapment History of lumbar fusion History of arthroscopy of left shoulder History of bunionectomy History of endometrial ablation History of carpal tunnel release History of laparoscopic cholecystectomy History of lumbar discectomy Social History Social History Household Members: Family Housing: House Are you a primary geriatric care manager to a significant other at home: No Do you presently have visiting nurse or other home services: No Alcohol intake: current Alcohol intake frequency: holidays/special occasions only Patient Tobacco Use Status: Former Tobacco user Tobacco use type: Cigarette Cigarettes Per Day: 4 e-Cigarette/Vaping Use: Never Used Substance Use Type: Marijuana Have you been hit, kicked, punched, or otherwise hurt by someone within the past year? If so, by whom?: No Are you DNR?: No Advance Directives: No Advance Directives Information Provided: Yes Recently lost weight without trying: No Nutrition Risks: No Nutritional Risk service: No Current occupational status: disabled Cognitive needs: No Hearing needs: No Vision needs: No Meds Allergies Allergy/AdvReac Type Severity Reaction Status Date / Time ibuprofen [Ibuprofen] Allergy Severe ACUTE Verified 10/24/24 10:23 RENAL FAILURE (YRS AGO), shut kidneys down, kidneys shut down dulaglutide [From Trulicity] AdvReac Intermediate Fatigue Verified 10/24/24 10:23 quetiapine [From Seroquel] AdvReac Intermediate Sleepiness Verified 10/24/24 10:23 Home Medications ?Medication ?Instructions ?Recorded ?Confirmed ?Last Taken ?Type pen needle, diabetic 31 gauge x #50 ea 07/07/20 10/24/24 Unknown History 10/27 aspirin 81 mg tablet,delayed 81 mg PO DAILY 03/02/23 10/24/24 Unknown History release (Adult Low Dose Aspirin) ezetimibe 10 mg tablet 10 mg PO DAILY 11/27/23 10/24/24 Unknown History tramadol 50 mg tablet 25 mg PO Q8H PRN pain 09/13/24 10/24/24 Unknown History Exam Height,Weight and Vital Signs: Height 5 ft 3 in Weight 86.3 kg Narrative Narrative: ECG 12-Lead ? 22:00:09 Ventricular Rate: 67 BPM Atrial Rate: 67 BPM P-R Interval: 192 ms QRS Duration: 84 ms Q-T Interval: 444 ms QTC Calculation(Bazett): 469 ms P [place]: 58 degrees R [place]: -22 degrees T [place]: 47 degrees Normal sinus rhythm Normal ECG When compared with ECG of 08-MAY-2020 08:12, No significant change was found Confirmed ? EchoEchocardiogram - Complete ? 11:32:28 Summary The left ventricular size is normal. There is mild concentric left ventricular hypertrophy. The LV systolic function is normal . The left ventricular ejection fraction is 55-60 %. There are no definite regional wall motion abnormalities. There is abnormal septal motion consistent with prior cardiac surgery . The aortic valve is probably bicuspid with a raphe. The aortic valve appears mildly thickened. The aortic valve leaflet opening is mildly decreased . There is no significant aortic stenosis. There is trace aortic regurgitation. The mitral valve is grossly normal. There is trace mitral regurgitation. The right ventricular size and function appears grossly normal. There is moderate tricuspid valve regurgitation. The pulmonary artery systolic pressure estimation is 25-30 mmHg. Comparison No prior study available for comparison. Carotid US 2023 Summary: Right Side: 1-49% stenosis in the Internal Carotid Artery. Antegrade flow in the Vertebral Artery. Turbulent / disturbed flow is seen in the Subcla vian Artery (seen previously).. Left Side: 1-49% stenosis in the Internal Carotid Artery. Antegrade flow in the Vertebral Artery. Multiphasic flow is seen in the Subclavian Artery. Comparison is made to the previous ultrasound study dated 11/01/22 (no significant change). Assessment and Plan Assessment Anesthesia Assessment: Chart Reviewed Documented by User: Raphael Talavera MD 10/24/24 11:16 [facility] Past Medical History Medical History Nausea GERD (gastroesophageal reflux disease) Anxiety and depression History of weakness Elevated cholesterol HTN (hypertension) CHF (congestive heart failure) Irritable bowel syndrome with diarrhea Chronic nausea Family History Family History Father Multiple sclerosis Mother Hypertension Diabetes Maternal Aunt Colon cancer Cervical cancer Other Mental problem Family history of problems with anesthesia: No Surgical History Surgical History History of esophagogastroduodenoscopy (EGD) Hx of colonoscopy History of vascular surgery S/P foot surgery, right S/P CABG x 3 Ulnar nerve entrapment History of lumbar fusion History of arthroscopy of left shoulder History of bunionectomy History of endometrial ablation History of carpal tunnel release History of laparoscopic cholecystectomy History of lumbar discectomy History of Problems with Anesthesia: No Social History Social History Household Members: Family Housing: House Are you a primary geriatric care manager to a significant other at home: No Do you presently have visiting nurse or other home services: No Alcohol intake: current Alcohol intake frequency: holidays/special occasions only Patient Tobacco Use Status: Former Tobacco user Tobacco use type: Cigarette Cigarettes Per Day: 4 e-Cigarette/Vaping Use: Never Used Substance Use Type: Marijuana Have you been hit, kicked, punched, or otherwise hurt by someone within the past year? If so, by whom?: No Are you DNR?: No Advance Directives: No Advance Directives Information Provided: Yes Recently lost weight without trying: No Nutrition Risks: No Nutritional Risk service: No Current occupational status: disabled Cognitive needs: No Hearing needs: No Vision needs: No Meds Allergies Allergy/AdvReac Type Severity Reaction Status Date / Time ibuprofen [Ibuprofen] Allergy Severe ACUTE Verified 10/24/24 10:23 RENAL FAILURE (YRS AGO), shut kidneys down, kidneys shut down dulaglutide [From Trulicity] AdvReac Intermediate Fatigue Verified 10/24/24 10:23 quetiapine [From Seroquel] AdvReac Intermediate Sleepiness Verified 10/24/24 10:23 Home Medications ?Medication ?Instructions ?Recorded ?Confirmed ?Last Taken ?Type pen needle, diabetic 31 gauge x #50 ea 07/07/20 10/24/24 Unknown History / aspirin 81 mg tablet,delayed 81 mg PO DAILY 03/02/23 10/24/24 Unknown History release (Adult Low Dose Aspirin) ezetimibe 10 mg tablet 10 mg PO DAILY 11/27/23 10/24/24 Unknown History tramadol 50 mg tablet 25 mg PO Q8H PRN pain 09/13/24 10/24/24 Unknown History Exam Airway Mallampati Class: II TM Dist: <=3cm Neck ROM: Full Denture: Upper and Lower Heart: ok. see above. Lungs: ok Assessment and Plan Assessment Anesthesia Assessment: Anesthesia Plan Discussed Final Anesthetic Review Family History of Problems with Anesthesia: No History of Problems with Anesthesia: No NPO: Yes ASA Class: III Final Preanesthetic Review: No Changes in Pt Med Stat, Meds/Allgs Chart Reviewed, Consent Obtained/Reviewed and Anes Risks/Benef Reviewed Patient Risk: High Procedure Risk: Low Anesthetic Plan Anesthetic Plan: MAC: and Agree w/ Assess. and Plan Disposition: Standard PACU
[2024-10-24 09:36] VITALS: BMI 31.7
--- NOTE | 2024-10-24 09:39 | MHC.SHP ---
Pre-Procedural Eval Section A - 24 Hr Update-Section A only Date of Service: 10/24/24 Section B - Complete if H&P > 30 days Chief Complaint: Other specified symptoms and signs involving Details of Present Illness: hx of colon polyps Relevant Family History (Specify if Yes): No Relevant Social History: None Present Medications: see Short Stay Collaborative assessment Medical History: Significant History (Nausea GERD (gastroesophageal reflux disease) Anxiety and depression History of weakness Elevated cholesterol HTN (hypertension) CHF (congestive heart failure) Irritable bowel syndrome with diarrhea Chronic nausea) History of Previous Operations: Relevant previous surgery/procedure and date(s) (History of esophagogastroduodenoscopy (EGD) Hx of colonoscopy History of vascular surgery S/P foot surgery, right S/P CABG x 3 Ulnar nerve entrapment History of lumbar fusion History of arthroscopy of left shoulder History of bunionectomy History of endometrial ablation History of carpal tunnel rele) Allergies: Allergies Allergy/AdvReac Type Severity Reaction Status Date / Time ibuprofen [Ibuprofen] Allergy Severe ACUTE Verified 09/25/24 14:36 RENAL FAILURE (YRS AGO), shut kidneys down, kidneys shut down dulaglutide [From Trulicity] AdvReac Intermediate Fatigue Verified 09/25/24 14:36 quetiapine [From Seroquel] AdvReac Intermediate Sleepiness Verified 09/25/24 14:36 Review of Systems Sugical H&P ROS: Negative: Constitution, Cardiovascular, Respiratory, Neurological, Psychiatric, Hem-Onc, Allergic/Immunologic, Gastrointestinal, Genitourinary, Musculoskeletal, Integumentary, Endocrine and Eyes/Ears/Nose/Throat Exam Surgical H&P Exam: Normal: HEENT, Normal: Heart, Normal: Lungs, Normal: Extremities, Normal: Abdomen, Normal: Skin and Normal: Neurological Plan Diagnosis/Plan: Unchanged I have reviewed the history and physical and performed a pertinent physical examination on my patient. No changes have occurred unless specified. Time Spent With Patient Time: Total time managing care of this patient today ____ minutes.
[2024-10-24] MEDS: Lactated Ringers 1,000 ML 50 ML IVCONT (09:46)
[2024-10-24 10:00] LABS: Glucose, Whole Blood 176 mg/dL (60-115)
[2024-10-24 10:02] VITALS: BP 115/59; PULSE 79; RESP 18; TEMP 36.7; O2SAT 96
--- NOTE | 2024-10-24 11:35 | HO.OPN-COLON ---
Colonoscopy Operative Note Operative Note Date of Service: 10/24/24 Narrative: Operative Information Procedure Description: Colonoscopy Indication: hx of colon polyps Anesthesia: MAC COLONOSCOPY Instrument: Olympus variable stiffness pediatric scope 190L Colonoscopy Monitoring: Vital signs and clinical assessment, continuous EKG monitoring, Pulse oximetry, Carbon Dioxide monitoring and blood pressure monitoring were done throughout the procedure. Colon withdrawal time was 15 minutes. Procedure: The patient was placed in the left lateral decubitis position and pre-procedure medications were administered. After a digital rectal examination of the ano-rectum, the video colonoscope was inserted into the rectum and advanced through the colon to the cecum/TI. The colonoscope was slowly withdrawn in a retrograde panoramic fashion and the colon mucosa was carefully examined including a retroflexed view of the rectum. Findings and interventions are described below. Procedure Difficulty: moderate -leaking air a lot Findings: Terminal Ileum-normal Cecum:normal Ascending Colon: normal Transverse Colon -normal Descending Colon: 4-5 mm sessile polyp removed with cold forceps Sigmoid Colon: x 2 sessile polyps 7-9 mm removed with cold snare Rectum: Retroflexion with small internal hemorrhoids seen, grade I Anorectum - normal Intervention: cold snare, cold forceps Colon preparation: Lookout Bowel Preparation Scale Right colon; 1-2 Transverse colon: 1-2 Left colon; 1-2 (0 = Unprepared colon segment with mucosa not seen due to solid stool that cannot be cleared. 1 = Portion of mucosa of the colon segment seen, but other areas of the colon segment not well seen due to staining, residual stool and/or opaque liquid. 2 = Minor amount of residual staining, small fragments of stool and/or opaque liquid, but mucosa of colon segment seen well. 3 = Entire mucosa of colon segment seen well with no residual staining, small fragments of stool or opaque liquid) Impression and Post Procedure Diagnosis: colon polyps x 3 internal hemorrhoids Plan: High fiber diet leaflet Avoid straining at stool, epsom salts and sitz bath, anusol supps or cream Repeat Colonoscopy in 1 year or earlier if clinically indicated --next time use regular golyte as patient felt suprep was not that good Above findings were reviewed with the patient and relevant handouts were provided if indicated.
[2024-10-24 11:46] VITALS: BP 90/40; PULSE 68; RESP 18; TEMP 36.7; O2SAT 97
[2024-10-24 12:01] VITALS: BP 98/53; PULSE 70; RESP 18; TEMP 36.7; O2SAT 97
[2024-10-24 12:16] VITALS: BP 119/72; PULSE 72; RESP 18; TEMP 36.7; O2SAT 97
== END 2024-10-24 13:17 | disposition home or self-care (01) ==
PROVIDERS: PCP Physician Assistant; Visit Provider Internal Medicine Gastroenterology
PROC: 0DJD8ZZ Inspection of Lower Intestinal Tract, Via Natural or Artificial Opening Endoscopic (ICD-10-PCS; CPT 45378; principal; 2024-10-24 13:00)
DX: Z12.11 Encounter for screening for malignant neoplasm of colon (principal); Z86.0101 Personal history of adenomatous and serrated colon polyps; K63.5 Polyp of colon; D12.5 Benign neoplasm of sigmoid colon; K64.0 First degree hemorrhoids; K58.0 Irritable bowel syndrome with diarrhea; K21.9 Gastro-esophageal reflux disease without esophagitis; I11.0 Hypertensive heart disease with heart failure; I50.9 Heart failure, unspecified; I25.10 Atherosclerotic heart disease of native coronary artery without angina pectoris; Z95.1 Presence of aortocoronary bypass graft; E78.00 Pure hypercholesterolemia, unspecified; R11.0 Nausea; E11.9 Type 2 diabetes mellitus without complications; F41.8 Other specified anxiety disorders; Z79.82 Long term (current) use of aspirin; Z79.899 Other long term (current) drug therapy; Z88.6 Allergy status to analgesic agent; Z88.8 Allergy status to other drugs, medicaments and biological substances; Z98.890 Other specified postprocedural states; Z87.891 Personal history of nicotine dependence
CPT/HCPCS: 45385; 45380; 82947; 88305; J2003; J2704

== ENCOUNTER → 2024-10-24 09:07 | Outpatient (BNV) | payer MEDICARE, MEDICAID, SELFPAY | PROVIDERS: PCP Physician Assistant; Visit Provider Internal Medicine Gastroenterology | DX: Z12.11 Encounter for screening for malignant neoplasm of colon (principal); Z86.0100 Personal history of colon polyps, unspecified; D12.5 Benign neoplasm of sigmoid colon; K63.5 Polyp of colon; K64.0 First degree hemorrhoids | CPT/HCPCS: 45380; 45385 ==

== ENCOUNTER 2024-11-06 13:18 | Outpatient (AMB) | payer MEDICARE, MEDICAID, SELFPAY ==
--- NOTE | 2024-11-06 13:22 | A.OFFVIS_ITS ---
Vital Signs 11/06/24 13:24 Height 5 ft 3 in Weight 187 lb 6.287 oz BMI 33.2 BP 140/72 H Blood Pressure Location Lt brachial Position Sitting Pulse 92 Pulse Source Pulse Oximeter Pulse Oximetry (%) 99 Oxygen Delivery Method Room Air Intake Visit Reasons: meter check, mounjaro follow up Intake Note: Patient presents today for a follow-up on Type 2 Diabetes Mellitus & Hyper glycemia: Last Diabetic eye exam was on: DUE Last Podiatry exam was on: Patient does not see a Milk House Worker Most recent HbA1c: 8.2%, 08/22/2024 Random Glucose- 188 mg/dL, Today Radio Engineer Required: No Accompanied by: Self / Same As Patient Allergies ibuprofen [Ibuprofen] Allergy (Severe, Verified 11/06/24 13:23) ACUTE RENAL FAILURE (YRS AGO), shut kidneys down, kidneys shut down dulaglutide [From Trulicity] Adverse Reaction (Intermediate, Verified 11/06/24 13:23) Fatigue quetiapine [From Seroquel] Adverse Reaction (Intermediate, Verified 11/06/24 13:23) Sleepiness Medication List - Last Reconciled 11/06/24 by Katia Ren MD aspirin (Adult Low Dose Aspirin) 81 mg PO DAILY atorvastatin 40 mg PO DAILY 90 days colestipol 1 g PO BID ezetimibe 10 mg PO DAILY flash glucose sensor (FreeStyle Francisco 2 Sensor kit) As directed insulin glargine (Lantus Solostar U-100 Insulin) 28 units (0.28 mL) subcut BEDTIME 30 days insulin lispro (Humalog KwikPen (U-100) Insulin) Sliding scale 8-24 units maximum subcutaneously 3 times a day; Sliding scale 8-24 units maximum loperamide 2 mg PO TID PRN 30 days metoprolol tartrate 25 mg PO BID Mounjaro (tirzepatide) 5 mg (0.5 mL) subcut QWEEK NS ondansetron HCl 8 mg PO TID 15 days pantoprazole 40 mg PO DAILY 90 days pen needle, diabetic As directed sodium,potassium,mag sulfates 17.5-3.13-1.6 gram (Suprep Bowel Prep Kit) DILUTE each bottle with 16oz of water; drink first bottle 5pm evening before procedure AND second bottle at 11pm; follow each bottle with at least 32 oz.of water within 1 hour after each bottle tramadol 25 mg PO Q8H PRN trazodone 150 mg PO BEDTIME 90 days valacyclovir 1,000 mg PO TID 7 days HPI Comments Details: This is a 59 year old female with IDDM presenting for consultation Medical history: CABG, PAD, CVA (10/2022) PCP: Christopher Stephenson Current medications: Lantus 28 units, Lispro 8-24 units TID cc sliding scale, mounjaro 2.5mg weekly. Past medications: Did not tolerate trulicity due to fatigue and less glucose control Last A1C 8.2% (beginning of Aug) from 7.4%. reviewed her meter today, some recent minimal improvement plan to increase mounjaro to 5mg with next dose. Seeing PCP beginning November-she will be due then for A1C. ROS CONSTITUTIONAL: Denies weight loss, fever and chills. HEENT: Denies changes in vision and hearing. RESPIRATORY: Denies SOB and cough. CV: Denies palpitations and CP GI: Denies abdominal pain, nausea, vomiting and diarrhea. : Denies dysuria and urinary frequency. MSK: Denies new myalgia and joint pain. SKIN: Denies rash and pruritus. NEUROLOGICAL: Denies headache PSYCHIATRIC: Denies recent changes in mood. PHYSICAL EXAM: GENERAL: Alert and oriented x 3. NAD EYES: EOMI. Anicteric. HENT: Moist mucous membranes. No scleral icterus. No cervical lymphadenopathy. LUNGS: Clear to auscultation bilaterally. CARDIOVASCULAR: Regular rate and rhythm. No murmur. No JVD. ABDOMEN: Soft, non-tender +bs EXTREMITIES: No edema. Non-tender. SKIN: No rashes or lesions. Warm. NEUROLOGIC: No focal neurological deficits. CN II-XII grossly intact PSYCHIATRIC: Cooperative. Appropriate mood and affect FORMERLY [facility], [facility]–1983 Medical History Nausea GERD (gastroesophageal reflux disease) Anxiety and depression History of weakness Elevated cholesterol HTN (hypertension) CHF (congestive heart failure) Irritable bowel syndrome with diarrhea Chronic nausea Surgical History History of esophagogastroduodenoscopy (EGD) Hx of colonoscopy History of vascular surgery S/P foot surgery, right S/P CABG x 3 Ulnar nerve entrapment History of lumbar fusion History of arthroscopy of left shoulder History of bunionectomy History of endometrial ablation History of carpal tunnel release History of laparoscopic cholecystectomy History of lumbar discectomy Family History Father Multiple sclerosis Mother Hypertension Diabetes Maternal Aunt Colon cancer Cervical cancer Other Mental problem Social History Household Members: Family Housing: House Are you a primary home care liaison to a significant other at home: No Do you presently have visiting nurse or other home services: No Alcohol intake: current Alcohol intake frequency: holidays/special occasions only Patient Tobacco Use Status: Former Tobacco user Tobacco use type: Cigarette Cigarettes Per Day: 4 e-Cigarette/Vaping Use: Never Used Substance Use Type: Marijuana service: No Current occupational status: disabled Cognitive needs: No Hearing needs: No Vision needs: No Physical Exam Vital Signs: Last Vital Signs Pulse 92 11/06/24 13:24 BP 140/72 H 11/06/24 13:24 Pulse Ox 99 11/06/24 13:24 Oxygen Delivery Method Room Air 11/06/24 13:24 BMI result Body Mass Index 33.2 Results Reviewed Results Reviewed: Laboratory Last Values Glucose (Clinic) 188 mg/dL (60-115) H 11/06/24 13:26 Assessment & Plan Assessment & Plan (1) DMII (diabetes mellitus, type 2): Code(s): E11.9 - Type 2 diabetes mellitus without complications Category: Medical Qualifiers: Diabetes mellitus termite inspector insulin use: without termite inspector use Diabetes mellitus complication status: with hyperglycemia Qualified Code(s): E11.65 - Type 2 diabetes mellitus with hyperglycemia Plan: Still suboptimal control. Meter does not seem to be working appropriately She will follow up with PCP next week, A1C is due them. She does endorse some hypoglycemia so will just have her increase the mounjaro at this point. I will follow up with her mid February when she is again due for her A1C Advised to call in interim for hypo/hyperglycemia Orders: Orders Hemoglobin A1c Today E11.65 - Type 2 diabetes mellitus with hyperglycemia Medications: New Mounjaro (tirzepatide) 5 mg (0.5 mL) subcut QWEEK 6 mL 3RF NS E11.65 - Type 2 diabetes mellitus with hyperglycemia Discontinued tirzepatide (Mounjaro) f Discontinued Reason: Doctor's Order 2.5 mg (0.5 mL) subcut QWEEK 4 weeks 2 mL 0RF E11.65 - Type 2 diabetes mellitus with hyperglycemia Coding Level of Care Code Est Pt Level 4 (40086) Diagnoses Type 2 diabetes mellitus with hyperglycemia, without long-term current use of insulin E11.65 Diabetes mellitus mcfp insulin use: without termite inspector use Diabetes mellitus complication status: with hyperglycemia
[2024-11-06 13:24] VITALS: BP 140/72; PULSE 92; O2SAT 99; BMI 33.2
[2024-11-06 13:48] LABS: Glucose, Whole Blood 188 mg/dL (60-115)
== END 2024-11-06 13:47 | disposition home or self-care (01) ==
LOC: HO.ENCR 13:18
PROVIDERS: PCP Physician Assistant; Visit Provider Internal Medicine
DX: E11.65 Type 2 diabetes mellitus with hyperglycemia (principal)

== ENCOUNTER → 2024-11-06 13:18 | Outpatient (BNVA) | payer MEDICARE, MEDICAID, SELFPAY | PROVIDERS: PCP Physician Assistant; Visit Provider Internal Medicine | DX: E11.65 Type 2 diabetes mellitus with hyperglycemia (principal); Z79.899 Other long term (current) drug therapy | CPT/HCPCS: 82947; 99212 ==

== ENCOUNTER 2024-11-20 13:58 | Outpatient (AMB) | payer MEDICARE, MEDICAID, SELFPAY ==
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
[2024-11-20 14:27] VITALS: BP 132/70; PULSE 65; TEMP 36.3; O2SAT 98; BMI 33.4
== END 2024-11-20 15:04 | disposition home or self-care (01) ==
LOC: HO.HMCH 13:58
PROVIDERS: PCP Physician Assistant; Visit Provider Physician Assistant
DX: E11.65 Type 2 diabetes mellitus with hyperglycemia (principal); I50.32 Chronic diastolic (congestive) heart failure; I63.9 Cerebral infarction, unspecified; J45.909 Unspecified asthma, uncomplicated

== ENCOUNTER → 2024-11-20 13:58 | Outpatient (BNVA) | payer MEDICARE, MEDICAID, SELFPAY | PROVIDERS: PCP Physician Assistant; Visit Provider Physician Assistant | DX: E11.65 Type 2 diabetes mellitus with hyperglycemia (principal); I63.9 Cerebral infarction, unspecified; J45.909 Unspecified asthma, uncomplicated | CPT/HCPCS: 83036; 96127; 99212 ==

== ENCOUNTER 2025-02-10 11:41 | Outpatient (AMB) | payer MEDICARE, MEDICAID, SELFPAY ==
--- NOTE | 2025-02-10 11:52 | MHC.OFFVIS ---
Vital Signs 02/10/25 12:03 Height 5 ft 3 in Weight 178 lb BMI 31.5 BP 119/65 Blood Pressure Location Lt brachial Position Sitting Pulse 88 Pulse Oximetry (%) 96 Oxygen Delivery Method Room Air Intake Visit Reasons: 4 month f/u Intake Note: Patient 4 month follow up for Colonoscopy results Patient cc: diarrhea on and off. Denies any other GI issues. Field Nurse Required: No Accompanied by: Self / Same As Patient Allergies ibuprofen (Ibuprofen) Allergy (Severe, Verified 02/10/25 11:53) ACUTE RENAL FAILURE (YRS AGO), shut kidneys down, kidneys shut down dulaglutide (From Trulicity) Adverse Reaction (Intermediate, Verified 02/10/25 11:53) Fatigue quetiapine (From Seroquel) Adverse Reaction (Intermediate, Verified 02/10/25 11:53) Sleepiness HPI HPI 4 month f/u: Details: 59-year-old female diabetic, being seen for f/u RECAP: She had nausea and abn bowle habit was scheduled for EGD and colonoscopy bx with reactive gastropathy, tubular adenomas removed, fair prep she takes tramadol prn diarrhea from posisble SIBO good response to rifaximin, got 2 courses reglan felt it never helped,she did feel benefit from rifaximin--I gave her x 2 courses c diff 08/2019--neg celiac panels neg x 2 GES--16% at 4 hrs colo 11/05: polyps: TA and HP INTERIM: still has diarrhea she has tried colestipol which has helped but not 100% she is not keen on trying powder forms only taking prn not scheduled tried probiotic and did not help she can nml stools followed by watery stools has iotchy eyes and congestion a lot, unsure why, has cats at home EXAM: GENERAL: The patient is well developed and nontoxic. VITAL SIGNS:see workflow HEENT: Nonicteric sclerae, PERRLA, EOMI. Oropharynx clear. Moist mucous membranes. Conjunctivae appear well perfused. No thyroid mass. CHEST: Chest wall is nontender. HEART: Regular rate and rhythm 2/6 ESM at aortic area (ECHO from [facility] with aortic thickening and mild TR) LUNGS: Clear to auscultation bilaterally. ABDOMEN: Soft, positive bowel sounds, nontender, no organomegaly.no flank tenderness SKIN: No rash, no excessive bruising, petechiae, or purpura. NEUROLOGIC: Cranial nerves II-XII intact without motor/sensory deficit. Psych: nml MS: nml A/P: 1/ nausea from gastroparesis, medications, infrequent, zofran works well 2/ altered bowel habit with diarrhea, could be SIBO due to her DM and medication,s v BAM, CHO intolerance or overflow diarrhea, due repeat colonoscopy PLAN: 1/ trial of colestipol on scheduled basis rather than prn 2/ if ongoing sx then EGD and bx for disaccharidases 3/ rast test [facility] Medical History Nausea GERD (gastroesophageal reflux disease) Anxiety and depression History of weakness Elevated cholesterol HTN (hypertension) CHF (congestive heart failure) Irritable bowel syndrome with diarrhea Chronic nausea Surgical History History of esophagogastroduodenoscopy (EGD) Hx of colonoscopy History of vascular surgery S/P foot surgery, right S/P CABG x 3 Ulnar nerve entrapment History of lumbar fusion History of arthroscopy of left shoulder History of bunionectomy History of endometrial ablation History of carpal tunnel release History of laparoscopic cholecystectomy History of lumbar discectomy Family History Father Multiple sclerosis Mother Hypertension Diabetes Maternal Aunt Colon cancer Cervical cancer Other Mental problem Social History Household Members: Family Housing: House Are you a primary medicare biller to a significant other at home: No Do you presently have visiting nurse or other home services: No Alcohol intake: current Alcohol intake frequency: holidays/special occasions only Patient Tobacco Use Status: Former Tobacco user Tobacco use type: Cigarette Cigarettes Per Day: 4 e-Cigarette/Vaping Use: Never Used Substance Use Type: Marijuana service: No Current occupational status: disabled Cognitive needs: No Hearing needs: No Vision needs: No Physical Exam Vital Signs: Last Vital Signs Pulse 88 02/10/25 12:03 BP 119/65 02/10/25 12:03 Pulse Ox 96 02/10/25 12:03 Oxygen Delivery Method Room Air 02/10/25 12:03 BMI result Body Mass Index 31.5 Assessment & Plan Assessment & Plan (1) GERD (gastroesophageal reflux disease): Code(s): K21.9 - Gastro-esophageal reflux disease without esophagitis Category: Medical Plan: as above Orders: Orders Rast Allergen Today Z91.018 - Allergy to other foods Coding Level of Care Code Est Pt Level 3 (85860) Diagnoses GERD (gastroesophageal reflux disease) K21.9
--- NOTE | 2025-02-10 11:52 | MHC.OFFVIS ---
Intake Visit Reasons: 4 month f/u Intake Note: Patient 4 month follow up for Patient cc: abdominal pain with bloating. Career Representative Required: No Accompanied by: Self / Same As Patient Allergies ibuprofen (Ibuprofen) Allergy (Severe, Verified 02/10/25 11:53) ACUTE RENAL FAILURE (YRS AGO), shut kidneys down, kidneys shut down dulaglutide (From Trulicity) Adverse Reaction (Intermediate, Verified 02/10/25 11:53) Fatigue quetiapine (From Seroquel) Adverse Reaction (Intermediate, Verified 02/10/25 11:53) Sleepiness PFSH Medical History Nausea GERD (gastroesophageal reflux disease) Anxiety and depression History of weakness Elevated cholesterol HTN (hypertension) CHF (congestive heart failure) Irritable bowel syndrome with diarrhea Chronic nausea Surgical History History of esophagogastroduodenoscopy (EGD) Hx of colonoscopy History of vascular surgery S/P foot surgery, right S/P CABG x 3 Ulnar nerve entrapment History of lumbar fusion History of arthroscopy of left shoulder History of bunionectomy History of endometrial ablation History of carpal tunnel release History of laparoscopic cholecystectomy History of lumbar discectomy Family History Father Multiple sclerosis Mother Hypertension Diabetes Maternal Aunt Colon cancer Cervical cancer Other Mental problem Social History Household Members: Family Housing: House Are you a primary hiv/aids care nurse to a significant other at home: No Do you presently have visiting nurse or other home services: No Alcohol intake: current Alcohol intake frequency: holidays/special occasions only Patient Tobacco Use Status: Former Tobacco user Tobacco use type: Cigarette Cigarettes Per Day: 4 e-Cigarette/Vaping Use: Never Used Substance Use Type: Marijuana service: No Current occupational status: disabled Cognitive needs: No Hearing needs: No Vision needs: No Coding
[2025-02-10 12:03] VITALS: BP 119/65; PULSE 88; O2SAT 96; BMI 31.5
--- OUTSIDE RECORDS SUMMARY | 2025-02-10 12:33 | XMS_ITS | Patient Health Record ---
Author Organization [facility] Address [address] [place] [id number] Care Team Providers Care Material Spreader Name Role Phone Christopher Stephenson Primary Care Provider Gagandeep Kirby Unavailable [phone] Allergies Allergen (clinical drug ingredient) Drug/Non Drug Allergy documented on EMR Reaction Allergy Type Onset Date Status ibuprofen Ibuprofen Unknown Drug Allergy Active seasonal (uncoded) Unknown Allergy A ctive Reason For Referral No Information Medications Medication SIG (Take, Route, Frequency, Duration) Notes Start Date End Date Status Myrbetriq 25 MG 1 tablet Orally twic e a day Not-Taking Vitamin D (Ergocalciferol) 22456 UNIT 1 capsule Orally for 30 day(s) Not-Taking Metoprolol Tartrate 25 MG Orally Twice a day Active Loperamide HCl 2 MG 1 capsule as needed Orally two times a day as needed Active Lasix 20 MG 1 tablet Orally Once a day Active Lisinopril 5 MG 1 tablet Orally Once a day for 30 day(s) Active Atorvastatin Calcium 20 MG 1 tablet Orally Once a day for 30 day(s) Active traZODone HCl 50 MG 1 tablet at bedtime Orally at hs Active Baby Aspirin 81 mg 1 tablet orallly onc e a day Active traMADol HCl 50 MG 1 tablet as needed Orally prn Active Metoclopramide HCl 10 MG as directed Ora lly three time a day Active Invokana 300 MG 1 tablet Orally Once a day Not-Taking Klor-Con 10 meq 1 tab Orally Twice a day Active Victoza 18 MG/3ML as directed Subcutaneous as directed Active Gabapentin 300 MG 1 capsule Orally 1in am/1 at noon/2 @hs Active Dicyclomine HCl 20 MG 1 tablet Orally Fo ur times a day for 30 day(s) Active NovoLOG 100 UNIT/ML sliding scale Subcutaneous 3 times a day Active Lantus 100 UNIT/ML 18 units Subcutaneou s at hs Active Pantoprazole Sodium 40 MG 1 tablet Orall y BID for 90 Active Immunizations Vaccine Route Administration Date Status Comme nts Influenza Unknown 06/14/2016 Administered Pneumococcal Unknown 03/14/2016 Administered Influenza Unknown 05/14/2018 Administered Social History Tobacco Use: Social History Observation Description Date Details (start date - stop date) Former Smoker NA - NA Tobacco Use/Smoking Question Answer Notes Patient is a former smoker How long has it been since you last smoked? 1-5 years Section Notes: Smoker; no alcohol Smoker; no alcohol Smoker; no alcohol Smoker; no alcohol Nonsmoker since 05/2016; no alcohol Nonsmoker since 08/2016; no a lcohol Nonsmoker since 08/2016; no a lcohol Smoker; no alcohol Problems Problem Type SNOMED Code ICD Code Onset Dates Problem Status W/U Status Risk Notes Problem 044589489 Encounter for screening for malignant neoplasm of colon (Z12.11) Active confirmed Problem 134702305 Nausea (R11.0) Active confirmed Problem 24045445 Abdominal pain, epigastric (R10.13) Active confirmed Problem 935125025 Gastroesophageal reflux disease without esophagitis (K21.9) Active confirmed Problem 198623740 Chronic hepatiti s C without hepatic coma (B18.2) Active confirmed Problem 957804714 Elevated alpha-fetoprotein (R77.2) Active confirmed Problem 60576185 Liver fibrosis (K74.0) Active confirmed Problem 07084103 Irritable bowel syndrome with both constipation and diarrhea (K58.2) Active confirmed Problem 34512362 Nausea and vomiting, intractability of vomiting not specified, unspecified vomiting type (R11.2) Active confirmed Problem 12828528 Fibrosis of live r (K74.0) Active confirmed Problem 71343502020264 Hx of hepatitis C (Z86.19) Active confirmed Problem 042716940 Retained food in stomach (K31.89) Active confirmed Plan Of Treatment Pending Test Test Name Order Date BUN 07/13/2016 BUN 07/12/2016 CREATININE 07/12/2016 CREATININE 07/13/2016 LIVER PROFILE 03/10/2017 LIVER PROFILE 02/26/2018 LIVER PROFILE 01/10/2017 LIVER PROFILE 07/02/2013 LIVER PROFILE 10/04/2016 CBC w DIFF 10/04/2016 CBC w DIFF 03/10/2017 CBC w DIFF 02/26/2018 CBC w DIFF 01/10/2017 PROTHROMBIN TIME (PT, INR) 02/26/2018 ALPHA-FETOPROTEIN,TUMOR MARKER 3 ALPHA-FETOPROTEIN,TUMOR MARKER 4 ALPHA-FETOPROTEIN,TUMOR MARKER 7 ALPHA-FETOPROTEIN,TUMOR MARKER 8 ENDOMYSIAL IGA 03/12/2013 TRANSGLUTAMINASE AB IGA 03/12/2013 TRANSGLUTAMINASE AB IGG 03/12/2013 HEPATITIS C VIRAL LOAD 01/10/2017 HEPATITIS C VIRAL LOAD 02/26/2018 HEPATITIS C VIRAL LOAD 10/04/2016 HEPATITIS C VIRAL LOAD 07/13/2016 HEPATITIS C VIRAL LOAD 03/10/2017 MRI ABD W&WO CONTRAST 07/13/2016 US ABD 01/01/2014 Future Test Test Name Order Date COLONOSCOPY 10/12/2012 UPPER GI ENDOSCOPY 09/20/2018 Insurance Providers Payer Name Payer Address Payer Phone Subscriber Number Group Number Insured Name Patient Relationship to Insured Coverage Start Date Coverage End Date MEDICARE OF [place] [address] [place] [address] [id number] JORGE CONTE Self - patient is the insured [facility] [address] [place] [address] [id number] JORGE CONTE Self - patient is the insured Medical (General) History Medical History History ICD Code Hepatitis C-Genotype 1B, kamini er bx in07/2001 with Grade 1/4 and Stage II/IV-treated for 5-6 months with PEG-Intron and Ribavirin in [id number], without any sig. change in the Hep C RNA levels. Had a neg. MRI of liver in 2008 , AFP of 10.5 She had a CAT scan of the liver in September of 2012 revealing some hepatomegaly, but without any masses. Her AST was 58 and her ALT was 68 at that time. She finished 3 months of Harvoni at the end of Dec, 2016--a hepatitis C viral load was negative while she was on treatment, at the end of February of 2017, and in September of 2018--her LFTs were normal as well IDDM IBS--labs for celiac disease were negati ve in February 2013 Depression Denies HI, CVA, nor renal disease Colonoscopy 09/2009-hyperplas tic polyp, diverticulosis, and internal hemorrhoids Right ovarian cyst-has seen her EDI COORDINATOR MD Kidney stones Colonoscopy 11/2012-WNL-Bx fr om TI and colon all normal--neg labs for celiac disease Liver bx in 03/2013 with a Gr cony 09/17 and Stage III/IV --more significant changes than were seen in 2000 Congestive heart failure 03/15 016--at [facility]--cardiac catheterization 06/2016--told of blockages but no stents were placed-following up with cardiologists at [facility]. She had a subsequent bypass in 2016 as below Urinary incontinence EGD in 09/2018 with gastric r etention and mild gastritis, neg H.pylori. Nuclear medicine gastric emptying study showed only a mild decrease in gastric emptying Surgical History Surgery Date(Month/Year) back surgery X2 carpal tunnel surgery on right hand elbow surgery left + right right shoulder surgery cholecystectomy 3-V CABG in 08/2016
== END 2025-02-10 12:57 | disposition home or self-care (01) ==
LOC: HO.HGI 11:42
PROVIDERS: PCP Physician Assistant; Visit Provider Internal Medicine Gastroenterology
DX: K21.9 Gastro-esophageal reflux disease without esophagitis (principal)
CPT/HCPCS: 99213

== ENCOUNTER → 2025-02-10 11:41 | Outpatient (BNVA) | payer MEDICARE, MEDICAID, SELFPAY | PROVIDERS: PCP Physician Assistant; Visit Provider Internal Medicine Gastroenterology | DX: K21.9 Gastro-esophageal reflux disease without esophagitis (principal); R19.7 Diarrhea, unspecified | CPT/HCPCS: 99212 ==

== ENCOUNTER 2025-02-19 10:37 | Outpatient (AMB) | payer MEDICARE, MEDICAID, SELFPAY ==
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
[2025-02-19 10:52] VITALS: BP 112/60; PULSE 85; O2SAT 95; BMI 32.1
--- OUTSIDE RECORDS SUMMARY | 2025-02-19 11:39 | XMS_ITS | Patient Health Record ---
Author Organization [facility] Address [address] [place] [id number] Care Team Providers Care Subway Car Repairer Name Role Phone Christopher Stephenson Primary Care Provider Gagandeep Kirby Unavailable [phone] Allergies Allergen (clinical drug ingredient) Drug/Non Drug Allergy documented on EMR Reaction Allergy Type Onset Date Status ibuprofen Ibuprofen Unknown Drug Allergy Active seasonal (uncoded) Unknown Allergy A ctive Reason For Referral No Information Medications Medication SIG (Take, Route, Frequency, Duration) Notes Start Date End Date Status Myrbetriq 25 MG 1 tablet Orally twic e a day Not-Taking Vitamin D (Ergocalciferol) 52344 UNIT 1 capsule Orally for 30 day(s) [...] Problem Status W/U Status Risk Notes Problem [id number] Encounter for screening for malignant neoplasm of colon (Z12.11) Active confirmed Problem 946535601 Nausea (R11.0) Active confirmed Problem 46078847 Abdominal pain, epigastric (R10.13) Active confirmed Problem 351904199 Gastroesophageal reflux disease without esophagitis (K21.9) Active confirmed Problem 734723464 Chronic hepatiti s C without hepatic coma (B18.2) Active confirmed Problem 675982093 Elevated alpha-fetoprotein (R77.2) Active confirmed Problem 38617734 Liver fibrosis (K74.0) Active confirmed Problem 02988108 Irritable bowel syndrome with both constipation and diarrhea (K58.2) Active confirmed Problem 37857581 Nausea and vomiting, intractability of vomiting not specified, unspecified vomiting type (R11.2) Active confirmed Problem 56115830 Fibrosis of live r (K74.0) Active confirmed Problem 93726622118807 Hx of hepatitis C (Z86.19) Active confirmed Problem 821258991 Retained food in stomach (K31.89) Active confirmed Plan Of Treatment Pending Test Test Name Order Date BUN 07/13/2016 BUN 07/12/2016 CREATININE 07/13/2016 CREATININE 07/12/2016 LIVER PROFILE 03/10/2017 LIVER PROFILE 02/26/2018 LIVER [...] OF [place] [address] [place]ES [address] [id number] JORGE CONTE Self - patient is the insured [facility] [address] [place] [address] [id number] JORGE CONTE Self - patient is the insured Medical (General) History Medical History History ICD Code Hepatitis C-Genotype 1B, kamini er bx in07/2001 with Grade 1/4 and Stage II/IV-treated for 5-6 months with PEG-Intron and Ribavirin in 0125-0625, without any sig. change in the Hep [...] negati ve in February 2013 Depression Denies IA, CVA, nor renal disease Colonoscopy 09/2009-hyperplas tic polyp, diverticulosis, and internal hemorrhoids Right ovarian cyst-has seen her HOME PERFORMANCE LABORER MD Kidney stones Colonoscopy 11/2012-WNL-Bx fr om TI and colon all normal--neg labs for celiac disease Liver bx in 03/2013 with a Gr cony 09/17 and Stage III/IV --more significant changes than were seen in 2000 Congestive heart failure 03/15 016--at [facility]--cardiac catheterization 06/2016--told of blockages but no stents were placed-following up with cardiologists at [facility]. She had a subsequent bypass in [...]
== END 2025-02-19 11:37 | disposition home or self-care (01) ==
LOC: HO.HMCH 10:38
PROVIDERS: PCP Physician Assistant; Visit Provider Physician Assistant
DX: E11.65 Type 2 diabetes mellitus with hyperglycemia (principal); I50.32 Chronic diastolic (congestive) heart failure; I63.9 Cerebral infarction, unspecified; E66.811 Obesity, class 1; Z68.32 Body mass index [BMI] 32.0-32.9, adult; J45.909 Unspecified asthma, uncomplicated

== ENCOUNTER → 2025-02-19 10:37 | Outpatient (BNVA) | payer MEDICARE, MEDICAID, SELFPAY | PROVIDERS: PCP Physician Assistant; Visit Provider Physician Assistant | DX: E11.65 Type 2 diabetes mellitus with hyperglycemia (principal); I50.32 Chronic diastolic (congestive) heart failure; I63.9 Cerebral infarction, unspecified; J45.909 Unspecified asthma, uncomplicated; E66.811 Obesity, class 1; Z68.32 Body mass index [BMI] 32.0-32.9, adult; Z71.3 Dietary counseling and surveillance | CPT/HCPCS: 83036; 96127; 99212 ==

== ENCOUNTER 2025-05-21 12:47 | Outpatient (AMB) | payer MEDICARE, MEDICAID, SELFPAY ==
[2025-05-21 12:49] VITALS: BP 122/66; PULSE 94; O2SAT 95; BMI 32.7
--- NOTE | 2025-05-21 12:49 | A.OFFVIS_ITS ---
Vital Signs 05/21/25 12:49 Height 5 ft 3 in Weight 184 lb 8.43 oz BMI 32.7 BP 122/66 Blood Pressure Location Lt brachial Position Sitting Pulse 94 Pulse Source Pulse Oximeter Pulse Oximetry (%) 95 Oxygen Delivery Method Room Air Intake Visit Reasons: Dm, A1C f/u Intake Note: Patient presents today for a follow-up on Type 2 Diabetes Mellitus: Last Diabetic eye exam was on: Patient has upcoming appointment. Last Podiatry exam was on: Patient does not see a Contact Center Rep Most recent HbA1c: DUE Random Glucose- 239__? mg/dL, Today Allergies ibuprofen (Ibuprofen) Allergy (Severe, Verified 05/21/25 12:54) ACUTE RENAL FAILURE (YRS AGO), shut kidneys down, kidneys shut down dulaglutide (From Trulicity) Adverse Reaction (Intermediate, Verified 05/21/25 12:54) Fatigue quetiapine (From Seroquel) Adverse Reaction (Intermediate, Verified 05/21/25 12:54) Sleepiness HPI Comments Details: This is a 59 year old female with IDDM presenting for consultation Medical history: CABG, PAD, CVA (10/2022) PCP: Christopher Stephenson Current medications: Lantus 28 units, Lispro 8-28 units QID cc sliding scale-she does not have her sliding scale and she does adjust based on food mounjaro 7.5mg weekly. Past medications: Did not tolerate trulicity due to fatigue and less glucose control A1C today is 8.4% from 8.4 from 7.5%. She does not have her reader, phone today for review. She does endorse a few readings in the 70s a recent reading in the 50s, usually in the morning or evening Upcoming eye exam Last LDL 54-due alb/cr -due ROS CONSTITUTIONAL: Denies weight loss, fever and chills. HEENT: Denies changes in vision and hearing. RESPIRATORY: Denies SOB and cough. CV: Denies palpitations and CP GI: Denies abdominal pain, nausea, vomiting and diarrhea. : Denies dysuria and urinary frequency. MSK: Denies new myalgia and joint pain. SKIN: Denies rash and pruritus. NEUROLOGICAL: Denies headache PSYCHIATRIC: Denies recent changes in mood. PHYSICAL EXAM: GENERAL: Alert and oriented x 3. NAD EYES: EOMI. Anicteric. HENT: Moist mucous membranes. No scleral icterus. No cervical lymphadenopathy. LUNGS: Clear to auscultation bilaterally. CARDIOVASCULAR: Regular rate and rhythm. No murmur. No JVD. ABDOMEN: Soft, non-tender +bs EXTREMITIES: No edema. Non-tender. SKIN: No rashes or lesions. Warm. NEUROLOGIC: No focal neurological deficits. CN II-XII grossly intact PSYCHIATRIC: Cooperative. Appropriate mood and affect [facility] Medical History Nausea GERD (gastroesophageal reflux disease) Anxiety and depression History of weakness Elevated cholesterol HTN (hypertension) CHF (congestive heart failure) Irritable bowel syndrome with diarrhea Chronic nausea Surgical History History of esophagogastroduodenoscopy (EGD) Hx of colonoscopy History of vascular surgery S/P foot surgery, right S/P CABG x 3 Ulnar nerve entrapment History of lumbar fusion History of arthroscopy of left shoulder History of bunionectomy History of endometrial ablation History of carpal tunnel release History of laparoscopic cholecystectomy History of lumbar discectomy Family History Father Multiple sclerosis Mother Hypertension Diabetes Maternal Aunt Colon cancer Cervical cancer Other Mental problem Social History Household Members: Family Housing: House Are you a primary health care facility administrator to a significant other at home: No Do you presently have visiting nurse or other home services: No Alcohol intake: current Alcohol intake frequency: holidays/special occasions only Patient Tobacco Use Status: Former Tobacco user Tobacco use type: Cigarette Cigarettes Per Day: 4 e-Cigarette/Vaping Use: Never Used Substance Use Type: Marijuana service: No Current occupational status: disabled Cognitive needs: No Hearing needs: No Vision needs: No Physical Exam Vital Signs: Last Vital Signs Pulse 94 05/21/25 12:49 BP 122/66 05/21/25 12:49 Pulse Ox 95 05/21/25 12:49 Oxygen Delivery Method Room Air 05/21/25 12:49 BMI result Body Mass Index 32.7 Results AMB Hemoglobin A1c AMB Hemoglobin A1c 8.4 % Last Edit by Etta Olvera CMA on 05/21/25 13:11 Results Reviewed Results Reviewed: Laboratory Last Values Glucose (Clinic) 239 mg/dL (60-115) H 05/21/25 13:00 Assessment & Plan Assessment & Plan (1) DMII (diabetes mellitus, type 2): Code(s): E11.9 - Type 2 diabetes mellitus without complications Category: Medical Qualifiers: Diabetes mellitus complication status: with hyperglycemia Diabetes mellitus jail insulin use: without jail use Qualified Code(s): E11.65 - Type 2 diabetes mellitus with hyperglycemia Plan Diabetes with complications Uncontrolled with hypoglycemia. Cannot review meter today Decrease lantus to 25. Sliding scale written out for her. Mounjaro increase to 12.5mg weekly Treat hypoglycemia by rules of 15s Return in six weeks or sooner as needed. Labs due Orders: Orders AMB Hemoglobin A1c Today E11.65 - Type 2 diabetes mellitus with hyperglycemia Medications: New Mounjaro (tirzepatide) increase from 7.5mg 12.5 mg (0.5 mL) subcut QWEEK 6 mL 3RF NS Changed From insulin glargine (Lantus Solostar U-100 Insulin) 28 units (0.28 mL) subcut BEDTIME 30 days 8.4 mL 6RF E11.9 - Type 2 diabetes mellitus without complications To insulin glargine (Lantus Solostar U-100 Insulin) 25 units (0.25 mL) subcut BEDTIME 7.5 mL 6RF 30 days E11.9 - Type 2 diabetes mellitus without complications From Novolog FlexPen U-100 Insulin (insulin aspart U-100) Take 8-28 units per sliding scale 1 sliding scale dose subcut USEASDIRECTD 30 days 15 mL 6RF NS E11.65 - Type 2 diabetes mellitus with hyperglycemia To Novolog FlexPen U-100 Insulin (insulin aspart U-100) Four times a day with meals For BG 0-100- take 0 units 101-200 take 18 units 201-300 take 20 units > 300 take 22 units 1 sliding scale dose subcut USEASDIRECTD 15 mL 6RF 30 days NS E11.65 - Type 2 diabetes mellitus with hyperglycemia Discontinued insulin lispro (Humalog KwikPen (U-100) Insulin) Discontinued Reason: Doctor's Order Sliding scale 8-24 units maximum subcutaneously 3 times a day; Sliding scale 8-24 units maximum 15 mL 3RF E11.65 - Type 2 diabetes mellitus with hyperglycemia tirzepatide (Mounjaro) Discontinued Reason: Doctor's Order 7.5 mg (0.5 mL) subcut QWEEK 4 weeks 2 mL 3RF E11.65 - Type 2 diabetes mellitus with hyperglycemia Coding Level of Care Code Est Pt Level 4 (83825) Diagnoses Type 2 diabetes mellitus with hyperglycemia, without long-term current use of insulin E11.65 Diabetes mellitus complication status: with hyperglycemia Diabetes mellitus long term care social worker insulin use: without long term care social worker use
[2025-05-21 13:05] LABS: Glucose, Whole Blood 239 mg/dL (60-115)
== END 2025-05-21 13:30 | disposition home or self-care (01) ==
LOC: HO.ENCR 12:48
PROVIDERS: PCP Physician Assistant; Visit Provider Internal Medicine
DX: E11.65 Type 2 diabetes mellitus with hyperglycemia (principal)

== ENCOUNTER → 2025-05-21 12:47 | Outpatient (BNVA) | payer MEDICARE, MEDICAID, SELFPAY | PROVIDERS: PCP Physician Assistant; Visit Provider Internal Medicine | DX: E11.65 Type 2 diabetes mellitus with hyperglycemia (principal); Z79.4 Long term (current) use of insulin | CPT/HCPCS: 82947; 83036; 99212 ==

== ENCOUNTER 2025-07-02 10:10 | Outpatient (REF) | payer MEDICARE, MEDICAID, SELFPAY ==
[2025-07-02 10:44] LABS: Hematocrit 46.5 % (37.0-47.0); Hemoglobin 15.3 g/dl (12.0-16.0); Mean Corpuscular HGB Conc 32.9 g/dl (31.0-35.0); Mean Corpuscular Hemoglobin 29.7 pg (27.0-33.0); Mean Corpuscular Volume 90.3 fL (80.0-98.0); NRBC Abs Auto 0.000 X10*3/uL (0.0-0.012); NRBC Pct Auto 0.0 /100WBC (0.0-0.2); Platelet Count 218 X10*3/uL (160-400); Red Blood Count 5.15 X10*6/uL (4.20-5.50); White Blood Count 11.3 X10*3/uL (4.8-10.8)
[2025-07-02 13:34] LABS: Alanine Aminotransferase 35 U/L (0-31); Albumin Level 4.4 g/dL (3.5-5.0); Alkaline Phosphatase 83 U/L (39-117); Anion Gap 14 (12-20); Aspartate Amino Transferase 34 U/L (5-31); Blood Urea Nitrogen 36 mg/dL (9-16); Calcium 9.7 mg/dL (8.4-10.2); Carbon Dioxide 24 mmol/L (22-29); Chloride 106 mmol/L (96-108); Cholesterol 220 mg/dL (<200); Estimated Glomerular Filt Rate 41; HDL Cholesterol 44 mg/dL (>40); Potassium 4.3 mmol/L (3.3-5.1); Sodium 140 mmol/L (135-145); Total Protein 7.3 g/dL (6.5-8.0); Triglycerides 206 mg/dL (<150)
[2025-07-02 14:01] LABS: Microalbum/Creatinine Ratio Ur 319.0 ug/mg cr (<30)
--- OUTSIDE RECORDS SUMMARY | 2025-07-02 19:25 | XMS_ITS | Patient Health Record ---
Author Organization [facility] Address [address] [place] [address] Care Team Providers Care Fabric Finisher Name Role Phone Christopher Stephenson Primary Care Provider Gagandeep Kirby Unavailable [phone] Allergies Allergen (clinical drug ingredient) Drug/Non Drug Allergy documented on EMR Reaction Allergy Type Onset Date Status seasonal (uncoded) Unknown Allergy A ctive ibuprofen Ibuprofen Unknown Drug Allergy Active Reason For Referral No Information Medications Medication SIG (Take, Route, Frequency, Duration) Notes Start Date End Date Status Myrbetriq 25 MG Tablet Extended Release 24 Hour 1 tablet Orally twice a day Not-Taking/PRN Vitamin D (Ergocalciferol) 74731 UNIT Capsule 1 capsule Orally; Duration: 30 day(s) Not-Taking/P RN Metoprolol Tartrate 25 MG Tablet Orally Twice a day Active Loperamide HCl 2 MG Capsule 1 capsule as needed Orally two times a day as needed Active Lasix 20 MG Tablet 1 tablet Orally Once a day Active Lisinopril 5 MG Tablet 1 tablet Orally O nce a day; Duration: 30 day(s) Active Atorvastatin Calcium 20 MG Tablet 1 tablet Orally Once a day; Duration: 30 day(s) Active traZODone HCl 50 MG Tablet 1 tablet at bedtime Orally at hs Active Baby Aspirin 81 mg 1 tablet orallly onc e a day Active traMADol HCl 50 MG Tablet 1 tablet as needed Orally prn Active Metoclopramide HCl 10 MG Tablet as directed Orally three time a day Active Invokana 300 MG Tablet 1 tablet Orally O nce a day Not-Taking/PRN Klor-Con 10 meq Tablet Extended Release 1 tab Orally Twice a day Active Victoza 18 MG/3ML Solution Pen-injector as directed Subcutaneous as directed Active Gabapentin 300 MG Capsule 1 capsule Orally 1in am/1 at noon/2 @hs Active Dicyclomine HCl 20 MG Tablet 1 tablet Orally Four times a day; Duration: 30 day(s) Active NovoLOG 100 UNIT/ML Solution sliding scale Subcutaneous 3 times a day Active Lantus 100 UNIT/ML Solution 18 units Subcutaneous at hs Active Pantoprazole Sodium 40 MG Tablet Delayed Release 1 tablet Orally BID; Duration: 90 Active Immunizations Vaccine Route Administration Date Status Comme nts Influenza Unknown 06/14/2016 Administered Influenza Unknown 05/14/2018 Administered Pneumococcal Unknown 03/14/2016 Administered Social History Tobacco Use: Social History Observation Description Date Details (start date - stop date) Former Smoker NA - NA Social History Tobacco Use: Social Info Question Answer Notes Tobacco Use/Smoking Patient is a former smoker How long has it been since you last smoked? 1-5 years Additional Details Category Social Info Options Details Miscellaneous: Marital status: single Occupation: disabled from he r back Section Notes: Smoker; no alcohol Smoker; no alcohol Smoker; no alcohol Smoker; no alcohol Nonsmoker since 05/2016; no alcohol Nonsmoker since 08/2016; no a lcohol Nonsmoker since 08/2016; no a lcohol Smoker; no alcohol Problems Problem Type SNOMED Code ICD Code Onset Dates Problem Status W/U Status Risk Notes Problem Screening for malignant neoplasm of colon (704403207) Encounter for screening for malignant neoplasm of colon (Z12.11) Active confirmed Problem Nausea (672471446) Nausea (R11.0) Active confir med Problem Epigastric pain (87953509) Abdominal pain, epigastric (R10.13) Active confirmed Problem Gastroesophageal reflux disease without esophagitis (648091756) Gastroesophageal reflux disease without esophagitis (K21.9) Active confirmed Problem Chronic hepatitis C (675225680) Chronic hepatitis C without hepatic coma (B18.2) Active confirmed Problem Elevated alpha-fetoprotein (R77.2) Active confirmed Problem Hepatic fibrosis (disorder) (45456648) Liver fibrosis (K74.0) Active confirmed Problem Irritable bowel syndrome (47600568) Irritable bowel syndrome with both constipation and diarrhea (K58.2) Active confirmed Problem Nausea and vomiting (90551911) Nausea and vomiting, intractability of vomiting not specified, unspecified vomiting type (R11.2) Active confirmed Problem Fibrosis of liver (99851416) Fibrosis of liver (K74.0) Active confirmed Problem History of hepatitis C (87377889806868) Hx of hepatitis C (Z86.19) Active confirmed Problem Retained food in stomach (K31.89) Active confirmed Plan Of Treatment Pending Test Test Name Order Date BUN 07/12/2016 BUN 07/13/2016 CREATININE 07/13/2016 CREATININE 07/12/2016 LIVER PROFILE 07/02/2013 LIVER PROFILE 03/10/2017 LIVER PROFILE 10/04/2016 LIVER PROFILE 01/10/2017 LIVER PROFILE 02/26/2018 CBC w DIFF 01/10/2017 CBC w DIFF 02/26/2018 CBC w DIFF 03/10/2017 CBC w DIFF 10/04/2016 PROTHROMBIN TIME (PT, INR) 02/26/2018 ALPHA-FETOPROTEIN,TUMOR MARKER 8 ALPHA-FETOPROTEIN,TUMOR MARKER 7 ALPHA-FETOPROTEIN,TUMOR MARKER 3 ALPHA-FETOPROTEIN,TUMOR MARKER 4 ENDOMYSIAL IGA 03/12/2013 TRANSGLUTAMINASE AB IGA 03/12/2013 TRANSGLUTAMINASE AB IGG 03/12/2013 HEPATITIS C VIRAL LOAD 03/10/2017 HEPATITIS C VIRAL LOAD 07/13/2016 HEPATITIS C VIRAL LOAD 10/04/2016 HEPATITIS C VIRAL LOAD 01/10/2017 HEPATITIS C VIRAL LOAD 02/26/2018 MRI ABD W&WO CONTRAST 07/13/2016 US ABD 01/01/2014 Future Test Test Name Order Date COLONOSCOPY 10/12/2012 UPPER GI ENDOSCOPY 09/20/2018 Insurance Providers Payer Name Payer Address Payer Phone Subscriber Number Group Number Insured Name Patient Relationship to Insured Coverage Start Date Coverage End Date MEDICARE OF [place] [address] [place] [id number] JORGE CONTE Self - patient is the insured MEDICAID OF [facility] [address] [place] [address] [id number] JORGE CONTE Self - patient is the insured Medical (General) History Medical History History ICD Code Hepatitis C-Genotype 1B, kamini er bx in07/2001 with Grade 1/4 and Stage II/IV-treated for 5-6 months with PEG-Intron and Ribavirin in 7419-4252, without any sig. change in the Hep [...] negati ve in February 2013 Depression Denies DC, CVA, nor renal disease Colonoscopy 09/2009-hyperplas tic polyp, diverticulosis, and internal hemorrhoids Right ovarian cyst-has seen her FEATURES REPORTER MD Kidney stones Colonoscopy 11/2012-WNL-Bx fr om TI and colon all normal--neg labs for celiac disease Liver bx in 03/2013 with a Gr cony / and Stage III/IV --more significant changes than were seen in 2000 Congestive heart failure 03/15 016--at [facility]--cardiac catheterization 06/2016--told of blockages but no stents were placed-following up with cardiologists at [facility]. She had a subsequent bypass in 2016 [...]
== END 2025-07-02 10:11 | disposition home or self-care (01) ==
LOC: HO.LAB 10:10
PROVIDERS: Internal Medicine; PCP Physician Assistant; Visit Provider Physician Assistant
DX: E11.65 Type 2 diabetes mellitus with hyperglycemia (principal); I25.10 Atherosclerotic heart disease of native coronary artery without angina pectoris; I10 Essential (primary) hypertension; E11.69 Type 2 diabetes mellitus with other specified complication; E78.2 Mixed hyperlipidemia; Z79.85 Long-term (current) use of injectable non-insulin antidiabetic drugs; Z87.891 Personal history of nicotine dependence
CPT/HCPCS: 36415; 80053; 80061; 82043; 82570; 82947; 83036; 85027; 99212

== ENCOUNTER 2025-07-02 11:08 | Outpatient (AMB) | payer MEDICARE, MEDICAID, SELFPAY ==
[2025-07-02 11:21] VITALS: BP 150/78; PULSE 77; O2SAT 97; BMI 31.6
--- NOTE | 2025-07-02 11:21 | A.OFFVIS_ITS ---
Vital Signs 07/02/25 11:21 Height 5 ft 3 in Weight 178 lb 9.191 oz BMI 31.6 BP 150/78 H Blood Pressure Location Rt brachial Position Sitting Pulse 77 Pulse Source Pulse Oximeter Pulse Oximetry (%) 97 Oxygen Delivery Method Room Air Intake Visit Reasons: DM follow up Intake Note: Patient presents today for a follow-up on Type 2 Diabetes Mellitus: Last Diabetic eye exam was on: 07/02/2025, [facility] Last Podiatry exam was on: Patient does not see a Guest Services Officer Most recent HbA1c: 8.4%, 05/21/2025 Random Glucose- 159 mg/dL, Today Recruitment Advertising Manager Required: No Accompanied by: Self / Same As Patient Allergies ibuprofen (Ibuprofen) Allergy (Severe, Verified 07/02/25 11:22) ACUTE RENAL FAILURE (YRS AGO), shut kidneys down, kidneys shut down dulaglutide (From Trulicity) Adverse Reaction (Intermediate, Verified 07/02/25 11:22) Fatigue quetiapine (From Seroquel) Adverse Reaction (Intermediate, Verified 07/02/25 11:22) Sleepiness HPI Comments Details: This is a 59 year old female with IDDM presenting for consultation Medical history: CABG, PAD, CVA (10/2022) PCP: Christopher Stephenson Current medications: Basaglar/Lantus 25 units-not taking consistently (she is only taking if BG >160 at night and taking ~18 units). Decreased from 28 units last visit Novolog Four times a day with meals- 0-100- take 0 units 101-200 take 18 units 201-300 take 20 units > 300 take 22 units she has not needed the novolog frequently. She had one low after taking a dinner dose of this Mounjaro 12.5mg weekly (increased last visit) Past medications: Did not tolerate trulicity due to fatigue and less glucose control A1C 05/21 8.4% from 8.4 from 7.5%. CGM -TGT 96%, 3% highs, 1% and 1 low at 69. Average BG down from 150 over 30 days to 136 over past 7 days Upcoming eye exam Last LDL 54-due, done today alb/cr -done today, pending ROS CONSTITUTIONAL: Denies weight loss, fever and chills. HEENT: Denies changes in vision and hearing. RESPIRATORY: Denies SOB and cough. CV: Denies palpitations and CP GI: Denies abdominal pain, nausea, vomiting and diarrhea. : Denies dysuria and urinary frequency. MSK: Denies new myalgia and joint pain. SKIN: Denies rash and pruritus. NEUROLOGICAL: Denies headache PSYCHIATRIC: Denies recent changes in mood. PHYSICAL EXAM: GENERAL: Alert and oriented x 3. NAD EYES: EOMI. Anicteric. HENT: Moist mucous membranes. No scleral icterus. No cervical lymphadenopathy. LUNGS: Clear to auscultation bilaterally. CARDIOVASCULAR: Regular rate and rhythm. No murmur. No JVD. ABDOMEN: Soft, non-tender +bs EXTREMITIES: No edema. Non-tender. SKIN: No rashes or lesions. Warm. NEUROLOGIC: No focal neurological deficits. CN II-XII grossly intact PSYCHIATRIC: Cooperative. Appropriate mood and affect [facility] Medical History Nausea GERD (gastroesophageal reflux disease) Anxiety and depression History of weakness Elevated cholesterol HTN (hypertension) CHF (congestive heart failure) Irritable bowel syndrome with diarrhea Chronic nausea Surgical History History of esophagogastroduodenoscopy (EGD) Hx of colonoscopy History of vascular surgery S/P foot surgery, right S/P CABG x 3 Ulnar nerve entrapment History of lumbar fusion History of arthroscopy of left shoulder History of bunionectomy History of endometrial ablation History of carpal tunnel release History of laparoscopic cholecystectomy History of lumbar discectomy Family History Father Multiple sclerosis Mother Hypertension Diabetes Maternal Aunt Colon cancer Cervical cancer Other Mental problem Social History Household Members: Family Housing: House Are you a primary field care manager to a significant other at home: No Do you presently have visiting nurse or other home services: No Alcohol intake: current Alcohol intake frequency: holidays/special occasions only Patient Tobacco Use Status: Former Tobacco user Tobacco use type: Cigarette Cigarettes Per Day: 4 e-Cigarette/Vaping Use: Never Used Substance Use Type: Marijuana service: No Current occupational status: disabled Cognitive needs: No Hearing needs: No Vision needs: No Physical Exam Vital Signs: Last Vital Signs Pulse 77 07/02/25 11:21 BP 150/78 H 07/02/25 11:21 Pulse Ox 97 07/02/25 11:21 Oxygen Delivery Method Room Air 07/02/25 11:21 BMI result Body Mass Index 31.6 Assessment & Plan Assessment & Plan (1) DMII (diabetes mellitus, type 2): Code(s): E11.9 - Type 2 diabetes mellitus without complications Category: Medical Qualifiers: Diabetes mellitus fpc insulin use: without terminal gauger supervisor use Diabetes mellitus complication status: with hyperglycemia Qualified Code(s): E11.65 - Type 2 diabetes mellitus with hyperglycemia Plan 60 year old presenting for one month diabetic follow up Seen last month A1c was 8.4% on 05/21 at that visit Mounjaro was increased. Since the increase has not required much novolog and did have an after dinner low with current dosing. Novolog scale decreased. Advised to do daily lantus/basaglar but lower dose of 10 units daily. She will return in 3 months or soooner as needed Treat hypoglycemia by rules of 15s Medications: Changed From Novolog FlexPen U-100 Insulin (insulin aspart U-100) Four times a day with meals For BG 0-100- take 0 units 101-200 take 18 units 201-300 take 20 units > 300 take 22 units 1 sliding scale dose subcut USEASDIRECTD 30 days 15 mL 6RF NS E11.65 - Type 2 diabetes mellitus with hyperglycemia To Novolog FlexPen U-100 Insulin (insulin aspart U-100) Four times a day with meals For BG <180- take 0 units 180-250 take 4 units 250-350 take 6 units > 350 take 8 units 1 sliding scale dose subcut USEASDIRECTD 15 mL 6RF 30 da ys NS E11.65 - Type 2 diabetes mellitus with hyperglycemia From Basaglar KwikPen U-100 Insulin (insulin glargine) 25 units (0.25 mL) subcut DAILY 24 mL 3RF NS E11.9 - Type 2 diabetes mellitus without complications To Berna Molina U-100 Insulin (insulin glargine) 10 units (0.1 mL) subcut DAILY 24 mL 3RF NS E11.9 - Type 2 diabetes mellitus without complications Discontinued Mounjaro (tirzepatide) Discontinued Reason: Doctor's Order 10 mg (0.5 mL) subcut QWEEK 2 mL 3RF NS Coding Level of Care Code Est Pt Level 4 (47091) Diagnoses Type 2 diabetes mellitus with hyperglycemia, without long-term current use of insulin E11.65 Diabetes mellitus fpc insulin use: without fpc use Diabetes mellitus complication status: with hyperglycemia
[2025-07-02 11:30] LABS: Glucose, Whole Blood 159 mg/dL (60-115)
== END 2025-07-02 11:48 | disposition home or self-care (01) ==
LOC: HO.ENCR 11:09
PROVIDERS: PCP Physician Assistant; Visit Provider Internal Medicine
DX: E11.65 Type 2 diabetes mellitus with hyperglycemia (principal)